=== PATIENT | female | born 1955 | race Caucasian/White ===

== ENCOUNTER 2018-11-11 12:34 | Emergency (ER) | payer OTHER ==
[2018-11-11 12:50] VITALS: BP 131/85
--- NOTE | 2018-11-11 13:58 | ED ---
General Adult HPI - General Chief complaint: Fall Stated complaint: fall Time Seen by Provider: 11/11/18 13:23 Source: patient, RN notes reviewed Mode of arrival: EMS Limitations: no limitations - History of Present Illness Initial comments: Patient is a 63-year-old female presented to the emergency room today with a chief complaint of fall. Patient does admit that she does have a history of a bad knee. States it has given out on her in the past but seems to be given now more recently. She states she was at work and it gave out a few times. She does admit that she's had some increased pain to the medial aspect of left knee and also hit the back of the right elbow. Patient does admit some bruising in this area as well. Patient denies any other complaints or symptoms. Patient denies any recent fever, chills, shortness of breath, chest pain, back pain, abdominal pain, nausea or vomiting, numbness or tingling, headaches or visual changes, or any other complaints. - Related Data Allergies Allergy/AdvReac Type Severity Reaction Status Date / Time No Known Allergies Allergy Verified 11/11/18 12:50 Review of Systems ROS Statement: Those systems with pertinent positive or pertinent negative responses have been documented in the HPI. ROS Other: All systems not noted in ROS Statement are negative. Past Medical History Past Medical History: COPD History of Any Multi-Drug Resistant Organisms: None Reported Past Surgical History: Section, Orthopedic Surgery, Tonsillectomy Past Psychological History: Anxiety, Depression, PTSD Smoking Status: Current every day smoker Past Alcohol Use History: Occasional Past Drug Use History: None Reported General Exam - General Exam Comments Initial Comments: General: The patient is awake and alert, in no distress, and does not appear acutely ill. Eye: There is normal conjunctiva bilaterally. No signs of icterus. Ears, nose, mouth and throat: There are moist mucous membranes and no oral lesions. Neck: The neck is supple, there is no tenderness or JVD. Musculoskeletal: Shows full range of motion with all extremities. She does have some bruising to the back of the right elbow. Some local tenderness to the posterior olecranon. Patient does have tenderness to the medial aspect of the left knee as well. Some minimal mild swelling when compared bilaterally. Strength 5/5. Sensation intact. Pulses equal bilaterally 2+. Neurological: A&O x 3. CN II-XII intact, There are no obvious motor or sensory deficits. Coordination appears grossly intact. Speech is normal. Skin: Skin is warm and dry and no rashes or lesions are noted. Psychiatric: Cooperative, appropriate mood & affect, normal judgment. Limitations: no limitations Course Vital Signs 11/11/18 12:48 Temperature 98.2 F Pulse Rate 70 Respiratory 20 Rate Blood Pressure 131/85 O2 Sat by Pulse 96 Oximetry Medical Decision Making - Medical Decision Making X-rays reviewed of the right elbow, left knee. There are degenerative changes is no evidence for any acute fracture dislocation. Results were discussed with the patient. Patient will be discharged home to follow-up with orthopedics. She is advised to follow-up with the orthopedic doctor next 2 days. Will be given knee immobilizer when up and moving around. She states that the left knee seems to give out. Patient advised to continue to ice elevate the affected areas return for any other concerns. Disposition Clinical Impression: Fall, Elbow contusion, Knee injury Disposition: HOME SELF-CARE Condition: Good Instructions: Knee Immobilizer (ED) Additional Instructions: Please follow-up orthopedics over the next 2 days. Please use knee immobilizer when up and moving around. Please continue to ice elevate the affected area. Please return to emergency room for any other concerns. Is patient prescribed a controlled substance at d/c from ED?: No Referrals: None,Stated [Primary Care Provider] - 1-2 days Trino Maxwell MD [STAFF PHYSICIAN] - 1-2 days Time of Disposition: 14:32
--- NOTE | 2018-11-11 14:11 | XR ---
EXAMINATION TYPE: XR elbow complete 3 views RT, XR knee complete 3 views LT DATE OF EXAM: 11/11/2018 COMPARISON: NONE HISTORY: 63-year-old female pain after fall FINDINGS: Right elbow: No acute fracture, subluxation, or dislocation. No elbow joint effusion. There is suggestion of some mild dorsal sided soft tissue swelling at and just below the level of the elbow. Left knee: Moderate loss of cartilage and joint space within the medial compartment with subchondral sclerosis a nd marginal spurring. There is a small knee joint effusion. Additional mild degenerative spurring at the patellofemoral compartment. No acute fracture or dislocation seen. IMPRESSION: 1. Right elbow: Suggestion of some dorsal sided soft tissue swelling at and just below the level of t he elbow. No acute osseous abnormality seen. 2. Left knee: At least moderate medial compartment osteoarthrosis. The degree of joint space narrowin g may be underestimated on this nonweightbearing view. Underlying small knee joint effusion which is nonspecific. No acute osseous abnormality seen.
[2018-11-11 14:54] VITALS: PULSE 71; RESP 150; TEMP 98
== END 2018-11-11 14:55 | disposition home or self-care (01) ==
LOC: EC 12:34
DX: S50.01XA Contusion of right elbow, initial encounter (principal); S80.02XA Contusion of left knee, initial encounter; M17.32 Unilateral post-traumatic osteoarthritis, left knee; M19.121 Post-traumatic osteoarthritis, right elbow; F17.200 Nicotine dependence, unspecified, uncomplicated; W19.XXXA Unspecified fall, initial encounter; Y92.009 Unspecified place in unspecified non-institutional (private) residence as the place of occurrence of the external cause
CPT/HCPCS: 73080; 73562; 99283; L1830

== ENCOUNTER 2018-11-26 13:00 | Inpatient (IN) | payer OTHER ==
--- NOTE | 2018-11-26 13:51 | ED ---
General Adult HPI - General Chief complaint: Alcohol Stated complaint: Mental health Source: patient, EMS Mode of arrival: EMS Limitations: no limitations - Related Data Home Medications Medication Instructions Recorded Confirmed Escitalopram [Lexapro] 20 mg PO DAILY 11/26/18 11/26/18 hydrOXYzine PAMOATE 50 mg PO TID 11/26/18 11/26/18 traZODone HCL 50 mg PO HS 11/26/18 11/26/18 Allergies Allergy/AdvReac Type Severity Reaction Status Date / Time No Known Allergies Allergy Verified 11/26/18 13:28 Review of Systems ROS Statement: Those systems with pertinent positive or pertinent negative responses have been documented in the HPI. ROS Other: All systems not noted in ROS Statement are negative. Past Medical History Past Medical History: COPD History of Any Multi-Drug Resistant Organisms: None Reported Past Surgical History: Section, Orthopedic Surgery, Tonsillectomy Past Psychological History: Anxiety, Depression, PTSD Smoking Status: Current every day smoker Past Alcohol Use History: Occasional Past Drug Use History: None Reported General Exam Limitations: no limitations Course Vital Signs 11/26/18 11/26/18 11/26/18 13:13 13:51 14:43 Temperature 98.2 F 98.3 F Pulse Rate 81 85 75 Respiratory 19 18 18 Rate Blood Pressure 127/76 124/65 123/74 O2 Sat by Pulse 95 91 L 98 Oximetry Medical Decision Making - Medical Decision Making Dictation was produced using Doc[employer] dictation software. please excuse any grammatical, word or spelling errors. Chief Complaint: 63-year-old female presents with depression and alcohol intoxication. History of Present Illness: Patient is 63-year-old female. She drinks alcohol daily. Patient had history of withdrawal 2 years ago and was treated in [place]. She was inpatient for 4 days. Presents today because she is afraid of going back withdrawals. She has intention of being admitted to rehab facility at [facility]. She states she was drinking all day. She feels depressed. She is worried that her depression maybe to suicidal ideation she does not seek medical attention. Patient has no other complaints at this time. The ROS documented in this emergency department record has been reviewed and confirmed by me. Those systems with pertinent positive or negative responses have been documented in the HPI. All other systems are other negative and/or noncontributory. PHYSICAL EXAM: General Impression: Alert and oriented x3, not in acute distress, smells of EtOH HEENT: Normocephalic atraumatic, extra-ocular movements intact, pupils equal and reactive to light bilaterally, mucous membranes moist. Cardiovascular: Heart regular rate and rhythm, S1&S2 audible, no murmurs, rubs or gallops Chest: Lungs clear to auscultation bilaterally, no rhonchi, no wheeze, no rales Abdomen: Bowel sounds present, abdomen soft, non-tender, non-distended, no organomegaly Musculoskeletal: Pulses present and equal in all extremities, no peripheral edema Motor: Power 5/5 bilaterally, no focal deficits noted Neurological: CN II-XII grossly intact, no focal motor or sensory deficits noted Skin: Intact with no visualized rashes Psych: Normal affect and mood ED course: 63-year-old female presents with depression and alcohol intoxication. Vital signs upon arrival are within acceptable limits. EPS was consult it for depression and possible suicidal ideation. Patient observed in emergency department when she developed alcohol withdrawal symptoms. Her initial Sumi scale is 3 immediately after arrival. After several hours repeat C was 13. Patient started on Ativan protocol for EtOH withdrawal. Patient be admitted for EtOH withdrawal. Disposition Clinical Impression: Alcohol withdrawal syndrome Disposition: ADMITTED IP TO THIS HOSP Condition: Fair Referrals: None,Stated [Primary Care Provider] - 1-2 days Decision Time: 17:36
[2018-11-26] MEDS ORDERED: LORazepam 2 MG/ML INJ IV PRN ×2 (17:13)
[2018-11-26] MEDS ORDERED: THIAMINE 100 MG/ML 2 ML VIAL IM STA (17:13)
[2018-11-26] MEDS ORDERED: NALOXONE 0.4 MG/ML 1 ML VIAL IV PRN (17:37)
[2018-11-26] MEDS: ONDANSETRON 4 MG/2 ML VIAL IVP PRN (18:15)
[2018-11-26 18:37] LABS: Basophils # (A) 0.1 k/uL (0-0.2); Basophils % (A) 1 %; Eosinophils # (A) 0.2 k/uL (0-0.7); Eosinophils % (A) 3 %; HCT 44.4 % (34.0-46.0); HGB 13.7 gm/dL (11.4-16.0); Lymphocytes % (A) 47 %; MCH 29.5 pg (25.0-35.0); MCV 95.4 fL (80.0-100.0); Mean Platelet Volume 6.5; Monocytes # (A) 0.3 k/uL (0-1.0); Monocytes % (A) 5 %; Neutrophils # (A) 2.7 k/uL (1.3-7.7); Neutrophils % (A) 43 %; Platelet Count 206 k/uL (150-450); RBC 4.66 m/uL (3.80-5.40); RDW 13.3 % (11.5-15.5); WBC 6.4 k/uL (3.8-10.6)
[2018-11-26 18:43] LABS: Partial Thromboplastin Time 25.7 sec (22.0-30.0); Prothrombin Time 10.5 sec (9.0-12.0)
--- NOTE | 2018-11-26 18:58 | P.HPIM ---
History of Present Illness H&P Date: 11/26/18 The patient is a 63 yo F with a PMH of COPD and EtOH abuse (hx of withdrawal seizures and DTs) presented to the ED with suicidal ideation. The patient states that she stopped drinking earlier today and wanted to get herself into [facility] for which she has an appt on 11/30/18 but felt like she would be a danger to herself at home and wanted to seek medical attention. At the time of the interview she denied any active suicidal or homicidal ideation. She drinks 1 -2 L of whiskey a day with last drink this am. She otherwise denied chest pain, SOB, nausea, vomiting, dizziness, abdominal pain, coughing, fever, or chills. In the ED, the patient was noted to be in EtOH withdrawal and was thereby admitted to the medicine service or impending withdrawal and psychiatric evaluation. Review of Systems Pertinent positives and negatives as discussed in HPI, a complete review of systems was performed and all other systems are negative. Past Medical History Past Medical History: COPD History of Any Multi-Drug Resistant Organisms: None Reported Past Surgical History: Section, Orthopedic Surgery, Tonsillectomy Past Psychological History: Anxiety, Depression, PTSD Smoking Status: Current every day smoker Past Alcohol Use History: Occasional Past Drug Use History: None Reported Medications and Allergies Home Medications Medication Instructions Recorded Confirmed Type Escitalopram [Lexapro] 20 mg PO DAILY 11/26/18 11/26/18 History hydrOXYzine PAMOATE 50 mg PO TID 11/26/18 11/26/18 History traZODone HCL 50 mg PO HS 11/26/18 11/26/18 History Allergies Allergy/AdvReac Type Severity Reaction Status Date / Time No Known Allergies Allergy Verified 11/26/18 13:28 Physical Exam Vitals: Vital Signs Temp Pulse Resp BP Pulse Ox 11/26/18 14:43 75 18 123/74 98 11/26/18 13:51 98.3 F 85 18 124/65 91 L 11/26/18 13:13 98.2 F 81 19 127/76 95 Intake and Output 11/26/18 11/26/18 11/26/18 06:59 14:59 22:59 Other: Weight 61.235 kg General: [non toxic], [no distress], [appears at stated age], [normal weight] Derm: [no unusual rashes/lesions] [no unusual ecchymoses], [warm], [dry] Head: [atraumatic], [normocephalic], [symmetric] Eyes: [EOMI], [no lid lag], [anicteric sclera], [pupils equal round reactive to light] ENT: [Nose and ears atraumatic], [no thrush], [no pharyngeal erythema] Neck: [No thyromegaly], [no cervical lymphadenopathy], [trachea midline], [ supple] Mouth: [no lip lesion], [mucus membranes moist] Cardiovascular: [S1S2 reg], [no murmur], [positive posterior tibial pulse bilateral], [no edema], [capillary refill less than 2 seconds] Lungs: [CTA bilateral], [no rhonchi, no rales] , [no accessory muscle use] Abdominal: [soft], [ nontender to palpation], [no guarding], [no appreciable organomegaly], [normal bowel sounds] Ext: [no gross muscle atrophy], [muscle strength 5 out of 5 in all 4 extremities grossly], [no contractures] Neuro: [ CN II-XI grossly intact], [light touch intact all 4 extremities], outstretched hand tremors, tongue fasciculations Psych: [Alert], [oriented], depressed affect Results CBC & Chem 7: 11/26/18 18:15 Assessment and Plan Plan: EtOH withdrawal -CIWA protocol -Thiamine, Folate, MV -F/u BMP and replace electrolytes as warranted -IVFs -Seizure, aspiration, fall precautions Suicidal ideation -Observation 1:1 -Suicide precautions -Psych consult COPD -Duonebs prn Tobacco abuse -Nicotine patch DVT//GI prophylaxis -IPCDs -Protonix The patient is admitted with an anticipated greater than 2 midnight stay for evaluation of alcohol withdrawal CODE STATUS:Full-code Discussed with: Patient Anticipated discharge date: 11/30/[address]: [place] A total of 60 minutes was spent on the care of this complex patient more than 50 % of the time was spent in counseling and care coordination.
[2018-11-26] MEDS ORDERED: IPRATROPIUM-ALBUTEROL 3 ML NEB INHALATION PRN (19:03)
[2018-11-26 19:33] LABS: ALT 31 U/L (9-52); AST 127 U/L (14-36); Albumin 3.5 g/dL (3.5-5.0); Alkaline Phosphatase 73 U/L (38-126); Anion Gap 9 mmol/L; Blood Urea Nitrogen 11 mg/dL (7-17); Calcium 8.8 mg/dL (8.4-10.2); Carbon Dioxide 26 mmol/L (22-30); Chloride 105 mmol/L (98-107); Glucose 101 mg/dL (74-99); Magnesium 1.6 mg/dL (1.6-2.3); Potassium 3.4 mmol/L (3.5-5.1); Sodium 140 mmol/L (137-145); Total Bilirubin 0.6 mg/dL (0.2-1.3); Total Protein 6.1 g/dL (6.3-8.2)
[2018-11-26 19:38] LABS: Alcohol 87 mg/dL
[2018-11-26] MEDS ORDERED: POTASSIUM CHLORIDE ER 20 MEQ TAB.ER PO STA (19:53)
[2018-11-26] MEDS: hydrOXYzine PAMOATE 25 MG CAP PO SCH (22:05)
[2018-11-27] MEDS: LORazepam 2 MG/ML INJ IV PRN ×2 (00:01→06:22)
[2018-11-27] MEDS: ONDANSETRON 4 MG/2 ML VIAL IVP PRN ×2 (00:01→09:00)
[2018-11-27] MEDS: hydrOXYzine PAMOATE 25 MG CAP PO SCH ×3 (08:56→20:27)
[2018-11-27] MEDS: THIAMINE 100 MG TAB PO SCH ×2 (08:56→17:04)
[2018-11-27] MEDS: FOLIC ACID 1 MG TAB PO SCH (08:56)
[2018-11-27] MEDS: ESCITALOPRAM 20 MG TAB PO SCH (08:56)
[2018-11-27 09:47] LABS: HCT 43.9 % (34.0-46.0); HGB 14.8 gm/dL (11.4-16.0); MCH 32.7 pg (25.0-35.0); MCHC 33.7 g/dL (31.0-37.0); MCV 96.9 fL (80.0-100.0); Mean Platelet Volume 6.9; Platelet Count 192 k/uL (150-450); RBC 4.53 m/uL (3.80-5.40); RDW 13.3 % (11.5-15.5); WBC 6.8 k/uL (3.8-10.6)
[2018-11-27 10:14] LABS: Albumin 3.5 g/dL (3.5-5.0); Calcium 9.1 mg/dL (8.4-10.2); Magnesium 1.4 mg/dL (1.6-2.3); Potassium 4.5 mmol/L (3.5-5.1); Total Bilirubin 1.5 mg/dL (0.2-1.3); Total Protein 6.1 g/dL (6.3-8.2)
--- NOTE | 2018-11-27 11:14 | P.PN ---
Subjective Progress Note Date: 11/27/18 The patient was seen and examined at the bedside. She notes feeling shaky but denied seizures, fever, chills, chest pain, SOB, nausea, vomiting, or dizziness. Objective - Vital Signs Vital signs: Vital Signs Temp 98.9 F 11/27/18 06:00 Pulse 72 11/27/18 06:00 Resp 20 11/27/18 06:00 BP 160/95 11/27/18 06:00 Pulse Ox 93 L 11/27/18 06:00 Intake & Output 11/26/18 11/27/18 11/27/18 18:59 06:59 18:59 Intake Total 100 Output Total 1 Balance 99 Weight 61.235 kg 68.266 kg Intake: Oral 100 Output: Stool 1 Other: # Voids 1 - Exam General: Non-toxic, in no acute distress, appears stated age HEENT: NC/AT, anicteric sclerae, moist conjunctiva, no lid-lag, PERRLA, tongue fasciculations Cardiovascular: S1/S2 wnl, no murmurs, rubs, or gallops Lungs: Clear to auscultation, normal respiratory effort, no accessory muscle use Abdominal: Soft, nontender, non-distended, no guarding, rebound, or rigidity Skin: Warm, dry Extremities: No edema or contractures Psychiatric: Alert and oriented to person, place and time, appropriate affect Neuro: CN II-XII grossly intact, Strength 5/5 in all 4 extremities, Speech intact, Sensation to light touch grossly intact throughout, outstretched hand tremors - Labs CBC & Chem 7: 11/27/18 09:11 11/27/18 09:11 Labs: Abnormal Lab Results - Last 24 Hours (Table) 11/26/18 11/27/18 Range/Units 19:12 09:11 Potassium 3.4 L (3.5-5.1) mmol/L Carbon Dioxide 31 H (22-30) mmol/L Glucose 101 H 104 H (74-99) mg/dL Magnesium 1.4 L (1.6-2.3) mg/dL Total Bilirubin 1.5 H (0.2-1.3) mg/dL AST 127 H 102 H (14-36) U/L Total Protein 6.1 L 6.1 L (6.3-8.2) g/dL Assessment and Plan Plan: EtOH withdrawal -CIWA protocol -Thiamine, Folate, MV -F/u BMP and replace electrolytes as warranted -IVFs -Seizure, aspiration, fall precautions Suicidal ideation -Observation 1:1 -Suicide precautions -Psych consult COPD -Duonebs prn Tobacco abuse -Nicotine patch DVT//GI prophylaxis -Lovenox -Protonix Discussed with: Patient Anticipated discharge date: 11/29/[address]: [place] A total of 30 minutes was spent on the care of this complex patient more than 50 % of the time was spent in counseling and care coordination.
[2018-11-27] MEDS: MAGNESIUM SULFATE-D5W PMX 1 GM in DEXTROSE/WATER 1 100ML.BAG IVPB SCH ×3 (12:17→14:20)
[2018-11-27] MEDS: NICOTINE 21MG/24HR PATCH TRANSDERM SCH (12:17)
--- NOTE | 2018-11-27 13:56 | P.CN ---
Psychiatric Consult - . Consult date: 11/27/18 Consult:: Suicidal urgent 11/27/18 12:56 Assessment and Plan Assessment: The patient is a 63 yo F with a PMH of COPD and EtOH abuse (hx of withdrawal seizures and DTs) presented to the ED with suicidal ideation. The patient states that she stopped drinking earlier today and wanted to get herself into [facility] for which she has an appt on 11/30/18 but felt like she would be a danger to herself at home and wanted to seek medical attention. At the time of the interview she denied any active suicidal or homicidal ideation. She drinks 1 -2 L of whiskey a day with last drink this am. She otherwise denied chest pain, SOB, nausea, vomiting, dizziness, abdominal pain, coughing, fever, or chills. In the ED, the patient was noted to be in EtOH withdrawal and was thereby admitted to the medicine service or impending withdrawal and psychiatric evaluation. Past Medical History Past Medical History: COPD History of Any Multi-Drug Resistant Organisms: None Reported Past Surgical History: Section, Orthopedic Surgery, Tonsillectomy Past Psychological History: Anxiety, Depression, PTSD Smoking Status: Current every day smoker Past Alcohol Use History: Occasional Past Drug Use History: None Reported Medications and Allergies Home Medications Medication Instructions Recorded Confirmed Type Escitalopram [Lexapro] 20 mg PO DAILY 11/26/18 11/26/18 History hydrOXYzine PAMOATE 50 mg PO TID 11/26/18 11/26/18 History traZODone HCL 50 mg PO HS 11/26/18 11/26/18 History Allergies Allergy/AdvReac Type Severity Reaction Status Date / Time No Known Allergies Allergy Verified 11/26/18 13:28 Mental Status Examination - General Appearance: [ disheveled, appears older than stated age Speech/Language: [ slow, soft, Attitude/Behavior: [cooperative Mood: [ depressed when she drinks,fearful, hopelessness Affect: [ flat Orientation: [time, person, place situation] Thought Content: [wnl, denies delusions, obsessions, phobias, other] Risk Factors: [Denies that the current time suicidal (ideations, plan), and/or Homicidal (ideations, plan), Perception: [wnl, denies hallucinations (auditory, visual, tactile)] Thought Processes: [goal-oriented Concentration/Attention Span: [wnl] [Per observation and interview with the patient] Recent Memory: [wnl] [ 3 out of 3 in 3 minutes] Remote Memory: [wnl] [past events, as related history] Intelligence: [average] [based on history, based on vocabulary, syntax, grammar , and content] Judgement: [ fair] [per patient's behavior/history of present illness] Insight: [fair [understanding severity of illness/history of present illness] Psychiatric impression: Major depressive disorder recurrent exacerbated by alcohol use disorder severe Psychiatric recommendation: Highly recommend this will go to [place] she is agreed to and for her to continue her psychiatric meds Lexapro trazodone and Vistaril as needed. She is not a psychiatric candidate for inpatient treatment however she does need alcohol use disorder severe treatment at a residential program. Thank you for the consult Hrenesto Cabrera D.O. PhD (1) Suicidal behavior Current Visit: Yes Status: Acute Priority: Low Code(s): R46.89 - OTHER SYMPTOMS AND SIGNS INVOLVING APPEARANCE AND BEHAVIOR SNOMED Code(s): 237025230 (2) Alcohol withdrawal syndrome Current Visit: Yes Status: Acute Priority: High Code(s): F10.239 - ALCOHOL DEPENDENCE WITH WITHDRAWAL, UNSPECIFIED SNOMED Code(s): 579618976
[2018-11-28] MEDS: LORazepam 2 MG/ML INJ IV PRN ×4 (01:56→21:45)
[2018-11-28] MEDS: ENOXAPARIN 40 MG/0.4 ML SYRINGE SQ SCH (08:32)
[2018-11-28] MEDS: NICOTINE 21MG/24HR PATCH TRANSDERM SCH (08:32)
[2018-11-28] MEDS: ESCITALOPRAM 20 MG TAB PO SCH (08:32)
[2018-11-28] MEDS: hydrOXYzine PAMOATE 25 MG CAP PO SCH ×3 (08:33→21:34)
[2018-11-28] MEDS: FOLIC ACID 1 MG TAB PO SCH (08:33)
[2018-11-28] MEDS: THIAMINE 100 MG TAB PO SCH ×2 (08:33→16:16)
[2018-11-28 10:46] LABS: HCT 46.5 % (34.0-46.0); MCH 31.4 pg (25.0-35.0); MCHC 32.4 g/dL (31.0-37.0); MCV 96.9 fL (80.0-100.0); Mean Platelet Volume 7.3; Platelet Count 179 k/uL (150-450); RDW 12.9 % (11.5-15.5); WBC 7.1 k/uL (3.8-10.6)
[2018-11-28 11:20] LABS: ALT 36 U/L (9-52); AST 95 U/L (14-36); Albumin 3.4 g/dL (3.5-5.0); Alkaline Phosphatase 91 U/L (38-126); Anion Gap 4 mmol/L; Blood Urea Nitrogen 11 mg/dL (7-17); Carbon Dioxide 30 mmol/L (22-30); Chloride 103 mmol/L (98-107); Glucose 115 mg/dL (74-99); Magnesium 1.9 mg/dL (1.6-2.3); Potassium 4.5 mmol/L (3.5-5.1); Sodium 137 mmol/L (137-145); Total Bilirubin 1.2 mg/dL (0.2-1.3); Total Protein 6.2 g/dL (6.3-8.2)
[2018-11-28 15:05] VITALS: RESP 16
--- NOTE | 2018-11-28 17:08 | P.PN ---
Subjective Progress Note Date: 11/28/18 The patient seen and examined the bedside. The patient notes that she is feeling better today and less shaky from yesterday. She denied any active homicidal or suicidal ideation. She also denied chest pain, shortness of breath , nausea, vomiting, diarrhea, dizziness, or headaches. Objective - Vital Signs Vital signs: Vital Signs Temp 98.8 F 11/28/18 15:00 Pulse 75 11/28/18 15:00 Resp 16 11/28/18 15:00 BP 133/85 11/28/18 15:00 Pulse Ox 94 L 11/28/18 15:00 Intake & Output 11/27/18 11/28/18 11/28/18 18:59 06:59 18:59 Intake Total 300 200 Output Total 1 Balance 300 199 Weight 68.266 kg Intake: Intake, IV Titration 300 Amount Magnesium Sulfate-D5w Pmx 300 1 gm In Dextrose/Water 1 100ml.bag @ 100 mls/hr IVPB Q1H [facility] Rx#: [id number] Oral 200 Output: Stool 1 Other: # Voids 1 1 - Exam General: Non-toxic, in no acute distress, appears stated age HEENT: NC/AT, anicteric sclerae, moist conjunctiva, no lid-lag, PERRLA, tongue fasciculations Cardiovascular: S1/S2 wnl, no murmurs, rubs, or gallops Lungs: Clear to auscultation, normal respiratory effort, no accessory muscle use Abdominal: Soft, nontender, non-distended, no guarding, rebound, or rigidity Skin: Warm, dry Extremities: No edema or contractures Psychiatric: Alert and oriented to person, place and time, appropriate affect Neuro: CN II-XII grossly intact, Strength 5/5 in all 4 extremities, Speech intact, Sensation to light touch grossly intact throughout, outstretched hand tremors - Labs CBC & Chem 7: 11/28/18 10:32 11/28/18 10:32 Labs: Abnormal Lab Results - Last 24 Hours (Table) 11/28/18 11/28/18 Range/Units 10:32 10:32 Hct 46.5 H (34.0-46.0) % Glucose 115 H (74-99) mg/dL AST 95 H (14-36) U/L Total Protein 6.2 L (6.3-8.2) g/dL Albumin 3.4 L (3.5-5.0) g/dL Assessment and Plan Plan: EtOH withdrawal -CIWA protocol -Thiamine, Folate, MV -F/u BMP and replace electrolytes as warranted -IVFs -Seizure, aspiration, fall precautions Suicidal ideation -Observation 1:1 -Suicide precautions -Psych recs appreciated COPD -Duonebs prn Tobacco abuse -Nicotine patch DVT//GI prophylaxis -Lovenox -Protonix Discussed with: Patient Anticipated discharge date: 11/30/[address]: [place] A total of 30 minutes was spent on the care of this complex patient more than 50 % of the time was spent in counseling and care coordination.
[2018-11-29 06:02] VITALS: BP 166/103; PULSE 74; TEMP 99
[2018-11-29] MEDS: hydrOXYzine PAMOATE 25 MG CAP PO SCH (07:54)
[2018-11-29] MEDS: THIAMINE 100 MG TAB PO SCH (07:54)
[2018-11-29] MEDS: ESCITALOPRAM 20 MG TAB PO SCH (07:54)
[2018-11-29] MEDS: ENOXAPARIN 40 MG/0.4 ML SYRINGE SQ SCH (07:54)
[2018-11-29] MEDS: NICOTINE 21MG/24HR PATCH TRANSDERM SCH (07:54)
[2018-11-29] MEDS: FOLIC ACID 1 MG TAB PO SCH (07:54)
[2018-11-29 09:48] LABS: Albumin 3.6 g/dL (3.5-5.0); Calcium 9.3 mg/dL (8.4-10.2); Potassium 4.5 mmol/L (3.5-5.1); Total Bilirubin 1.1 mg/dL (0.2-1.3); Total Protein 6.4 g/dL (6.3-8.2)
--- NOTE | 2018-11-29 10:03 | P.DS ---
Providers Date of admission: 11/26/18 17:37 Expected date of discharge: 11/29/18 Attending physician: Laura Davis MD Consults: 11/27/18 07:45 Consult Physician Urgent Consulting Provider: Hernesto Cabrera Consult Reason/Comments: Suicidal ideation Do you want consulting provider notified?: Yes Primary care physician: Stated None Hospital Course: The patient is a 63-year-old female with a past medical history of COPD and alcohol abuse who presented to the ED with alcohol intoxication and suicidal ideation. The patient had an appointment at [facility] and felt that she would not be safe at home as she might hurt herself. The patient was admitted for psychiatric evaluation impending alcohol withdrawal. She was placed on the protocol with Ativan and was monitored for withdrawal symptoms. Psychiatry evaluated the patient and she was deemed not appropriate for inpatient admission and recommended alcohol rehab at [facility]. The patient' s withdrawal symptoms gradually improved and she is presently stable and ready for discharge to home. Physical Examination General: Awake, alert, in no acute distress HEENT: NC/AT, anicteric sclerae, moist conjunctiva, no lid-lag, PERRLA, oropharynx clear, no erythema, exudates, no tongue fasciculations Cardiovascular: S1/S2 wnl, no murmurs, rubs, or gallops Lungs: Clear to auscultation, normal respiratory effort, no accessory muscle use Abdominal: Soft, nontender, non-distended, no guarding, rebound, or rigidity, normoactive bowel sounds Skin: Warm, dry Extremities: No edema or contractures Psychiatric: Alert and oriented to person, place and time, appropriate affect, Intact judgment Neuro: CN II-XI grossly intact, sensation to light touch grossly present throughout, strength 5/5 throughout, no outstretched hand tremor Discharge diagnosis: Alcohol intoxication with withdrawal, suicidal ideation, COPD, tobacco abuse A total of 60 minutes of time were spent preparing this complex discharge summary. Patient Condition at Discharge: Stable Plan - Discharge Summary New Discharge Prescriptions: No Action traZODone HCL 50 mg PO HS hydrOXYzine PAMOATE 50 mg PO TID Escitalopram [Lexapro] 20 mg PO DAILY Discharge Medication List Escitalopram [Lexapro] 20 mg PO DAILY 11/26/18 [History] hydrOXYzine PAMOATE 50 mg PO TID 11/26/18 [History] traZODone HCL 50 mg PO HS 11/26/18 [History] Follow up Appointment(s)/Referral(s): None,Stated [Primary Care Provider] - 1-2 days
== END 2018-11-29 11:28 | disposition home or self-care (01) | DRG 897 ==
LOC: EC 13:00 → 4MS4W 17:37
PROVIDERS: ADMIT Internal Medicine; ATTEND Internal Medicine
DX: F10.239 Alcohol dependence with withdrawal, unspecified (principal); R45.851 Suicidal ideations; F10.229 Alcohol dependence with intoxication, unspecified; F17.200 Nicotine dependence, unspecified, uncomplicated; F32.9 Major depressive disorder, single episode, unspecified; F43.10 Post-traumatic stress disorder, unspecified; J44.9 Chronic obstructive pulmonary disease, unspecified; F41.9 Anxiety disorder, unspecified; Z79.899 Other long term (current) drug therapy
CPT/HCPCS: 80053; 80320; 82075; 83735; 85025; 85027; 85610; 85730; 96372; 96374; 99285

== ENCOUNTER 2020-01-27 09:27 | Emergency (ER) | payer OTHER ==
--- NOTE | 2020-01-27 10:11 | ED ---
General Adult HPI - General Source: patient, EMS, RN notes reviewed Mode of arrival: EMS Limitations: no limitations <Bruce Dorado - Last Filed: 01/27/20 10:10> <Sal Marie - Last Filed: 01/27/20 17:31> - General Chief complaint: Psychiatric Symptoms Stated complaint: Suicidal Time Seen by Provider: 01/27/20 09:32 - History of Present Illness Initial comments: Patient is a pleasant 64-year-old female presenting to the emergency Department with depression and suicidal thoughts. Thoughts are progressed with the past couple of weeks. Patient does have thoughts of jumping in front of traffic. No homicidal thoughts. Patient does have history of depression and alcohol problems. Patient has been drinking alcohol again recently. No street drugs. No hallucinations. No new physical complaints. Patient states she does have a history of PTSD (Bruce Dorado) - Related Data Home Medications Medication Instructions Recorded Confirmed Escitalopram [Lexapro] 20 mg PO DAILY 11/26/18 01/27/20 hydrOXYzine PAMOATE 50 mg PO TID 11/26/18 01/27/20 traZODone HCL 50 mg PO HS PRN 11/26/18 01/27/20 Aspirin EC [Ecotrin Low Dose] 81 mg PO DAILY 01/27/20 01/27/20 Atorvastatin [Lipitor] 20 mg PO DAILY 01/27/20 01/27/20 Ergocalciferol [Vitamin D2] 50,000 unit PO Q14D 01/27/20 01/27/20 Ipratropium-Albuterol Nebulize 3 ml INHALATION RT-Q6H PRN 01/27/20 01/27/20 [Duoneb 0.5 mg-3 mg/3 ml Soln] Previous Rx's Medication Instructions Recorded Folic Acid 1 mg PO DAILY@1200 #30 tab 11/29/18 Thiamine [Vitamin B-1] 100 mg PO BID@1200,1700 #30 tab 11/29/18 Allergies Allergy/AdvReac Type Severity Reaction Status Date / Time No Known Allergies Allergy Verified 01/27/20 11:19 Review of Systems ROS Other: All systems not noted in ROS Statement are negative. Constitutional: Denies: fever Eyes: Denies: eye pain ENT: Denies: ear pain Respiratory: Denies: cough Cardiovascular: Denies: chest pain Endocrine: Denies: fatigue Gastrointestinal: Denies: abdominal pain Genitourinary: Denies: dysuria Musculoskeletal: Denies: back pain Skin: Denies: rash Neurological: Denies: headache Psychiatric: Reports: depression, suicidal thoughts <Bruce Dorado - Last Filed: 01/27/20 10:10> ROS Other: All systems not noted in ROS Statement are negative. <Sal Marie - Last Filed: 01/27/20 17:31> ROS Statement: Those systems with pertinent positive or pertinent negative responses have been documented in the HPI. Past Medical History Past Medical History: COPD History of Any Multi-Drug Resistant Organisms: None Reported Past Surgical History: Section, Orthopedic Surgery, Tonsillectomy Past Psychological History: Anxiety, Depression, PTSD Smoking Status: Current every day smoker Past Alcohol Use History: Occasional Past Drug Use History: None Reported <Bruce Dorado - Last Filed: 01/27/20 10:10> General Exam Limitations: no limitations General appearance: alert, in no apparent distress Head exam: Present: normocephalic Eye exam: Present: normal appearance Neck exam: Present: normal inspection Respiratory exam: Present: normal lung sounds bilaterally Cardiovascular Exam: Present: regular rate, normal rhythm GI/Abdominal exam: Present: soft. Absent: distended, tenderness Extremities exam: Present: normal inspection Neurological exam: Present: alert Psychiatric exam: Present: depressed Skin exam: Present: normal color <Bruce Dorado - Last Filed: 01/27/20 10:10> Course <Sal Marie - Last Filed: 01/27/20 17:31> Vital Signs 01/27/20 01/27/20 01/27/20 09:57 10:06 11:06 Temperature 97.8 F Pulse Rate 81 Respiratory 20 18 16 Rate Blood Pressure 123/73 O2 Sat by Pulse 97 Oximetry 01/27/20 16:00 Temperature 97.9 F Pulse Rate 95 Respiratory 18 Rate Blood Pressure 185/86 O2 Sat by Pulse 94 L Oximetry - Reevaluation(s) Reevaluation #1: 01/27/20 17:30 I did evaluate this patient after sign out, she is resting comfortably, no longer intoxicated, denying any suicidal or homicidal ideation. Patient eager for discharge. (Sal Marie) Medical Decision Making <Sal Marie - Last Filed: 01/27/20 17:31> - Medical Decision Making 64-year-old female presenting with depression and suicidal thoughts. Patient was initially intoxicated, she was observed in the emergency department awaiting sobriety. She was evaluated by EPS and no longer suicidal. She has signed a safety plan and is eager for discharge. (Sal Marie) - Lab Data Lab Results 01/27/20 Range/Units 10:00 Urine Opiates Screen Not Detected (NotDetected) Ur Oxycodone Screen Not Detected (NotDetected) Urine Methadone Screen Not Detected (NotDetected) Ur Propoxyphene Screen Not Detected (NotDetected) Ur Barbiturates Screen Not Detected (NotDetected) U Tricyclic Antidepress Not Detected (NotDetected) Ur Phencyclidine Scrn Not Detected (NotDetected) Ur Amphetamines Screen Not Detected (NotDetected) U Methamphetamines Scrn Not Detected (NotDetected) U Benzodiazepines Scrn Not Detected (NotDetected) Urine Cocaine Screen Not Detected (NotDetected) U Marijuana (THC) Screen Not Detected (NotDetected) Disposition <Bruce Dorado - Last Filed: 01/27/20 10:10> Is patient prescribed a controlled substance at d/c from ED?: No Time of Disposition: 17:29 <Sal Marie - Last Filed: 01/27/20 17:31> Clinical Impression: Depression Disposition: HOME SELF-CARE Condition: Fair Instructions (If sedation given, give patient instructions): Alcohol Intoxication (ED), Depression (ED) Additional Instructions: Please follow up with community mental health, return with worsening or changing symptoms. Referrals: Kandi Dailey MD [Primary Care Provider] - 1-2 days
[2020-01-27 10:33] LABS: Amphetamine Screen,Urine Not Detected (NotDetected); Barbiturate Screen,Urine Not Detected (NotDetected); Benzodiazepines Screen,Urine Not Detected (NotDetected); Cocaine Screen,Urine Not Detected (NotDetected); Methadone Screen, Urine Not Detected (NotDetected); Opiate Screen,Urine Not Detected (NotDetected); Oxycodone Screen, Urine Not Detected (NotDetected); Phencyclidine Screen,Urine Not Detected (NotDetected); Tricyclic Antidepressant,Urine Not Detected (NotDetected); Urn Cannabinoid Scrn Not Detected (NotDetected)
[2020-01-27 16:01] VITALS: TEMP 97.9
[2020-01-27 17:53] VITALS: BP 128/80; PULSE 80; RESP 20
== END 2020-01-27 17:45 | disposition home or self-care (01) ==
LOC: EC 09:27
DX: F32.9 Major depressive disorder, single episode, unspecified (principal); F43.10 Post-traumatic stress disorder, unspecified; R45.851 Suicidal ideations; F10.129 Alcohol abuse with intoxication, unspecified; F17.200 Nicotine dependence, unspecified, uncomplicated; J44.9 Chronic obstructive pulmonary disease, unspecified; F41.9 Anxiety disorder, unspecified; Z79.899 Other long term (current) drug therapy; Z79.82 Long term (current) use of aspirin
CPT/HCPCS: 80306; 82075; 99285

== ENCOUNTER 2020-03-03 20:54 | Observation (INO) | payer OTHER ==
[2020-03-03] MEDS ORDERED: SODIUM CHLORIDE 0.9% 1,000 ML with MVI, ADULT NO.4 WITH VIT K 10 ML, THIAMINE 100 MG, F... IV ONE ×4 (21:17)
[2020-03-03] MEDS ORDERED: LORazepam 2 MG/ML INJ IV STA (21:18)
--- NOTE | 2020-03-03 21:20 | ED ---
General Adult HPI - General Chief complaint: Psychiatric Symptoms Stated complaint: Mental Health Time Seen by Provider: 03/03/20 20:55 Source: police, RN notes reviewed, old records reviewed Mode of arrival: wheelchair - History of Present Illness Initial comments: This is a 64-year-old female who was brought in by police petitioned her because she said she wanted to hang herself. I am unsure as to why the police came to the house because they were not around to talk to when I interviewed the patient. Patient herself says she called them but she doesn't really know why. Patient states she was drinking and she does want to hurt herself. Patient denies any drug use. Patient denies any injury to herself. Patient denies taking any overdose. Patient denies any physical complaints today. - Related Data Home Medications Medication Instructions Recorded Confirmed Escitalopram [Lexapro] 20 mg PO DAILY 11/26/18 01/27/20 hydrOXYzine PAMOATE 50 mg PO TID 11/26/18 01/27/20 traZODone HCL 50 mg PO HS PRN 11/26/18 01/27/20 Aspirin EC [Ecotrin Low Dose] 81 mg PO DAILY 01/27/20 01/27/20 Atorvastatin [Lipitor] 20 mg PO DAILY 01/27/20 01/27/20 Ergocalciferol [Vitamin D2] 50,000 unit PO Q14D 01/27/20 01/27/20 Ipratropium-Albuterol Nebulize 3 ml INHALATION RT-Q6H PRN 01/27/20 01/27/20 [Duoneb 0.5 mg-3 mg/3 ml Soln] Previous Rx's Medication Instructions Recorded Folic Acid 1 mg PO DAILY@1200 #30 tab 11/29/18 Thiamine [Vitamin B-1] 100 mg PO BID@1200,1700 #30 tab 11/29/18 Allergies Allergy/AdvReac Type Severity Reaction Status Date / Time No Known Allergies Allergy Verified 03/03/20 21:01 Review of Systems ROS Statement: Those systems with pertinent positive or pertinent negative responses have been documented in the HPI. ROS Other: All systems not noted in ROS Statement are negative. Past Medical History Past Medical History: COPD History of Any Multi-Drug Resistant Organisms: None Reported Past Surgical History: Section, Orthopedic Surgery, Tonsillectomy Past Psychological History: Anxiety, Depression, PTSD Smoking Status: Current every day smoker Past Alcohol Use History: Occasional Past Drug Use History: None Reported General Exam - General Exam Comments Initial Comments: GENERAL: Patient is well-developed and well-nourished. Patient is nontoxic and well- hydrated and is in no acute distress. Patient is very loud and obnoxious but does not appear to be trying to hurt to staff ENT: Neck is soft and supple. No significant lymphadenopathy is noted. Neck has full range of motion without eliciting any pain. EYES: The sclera were anicteric and conjunctiva were pink and moist. Extraocular movements were intact and pupils were equal round and reactive to light. Eyelids were unremarkable. PULMONARY: Unlabored respirations. Good breath sounds bilaterally. No audible rales rhon chi or wheezing was noted. CARDIOVASCULAR: There is a regular rate and rhythm without any murmurs gallops or rubs. ABDOMEN: Soft and nontender with normal bowel sounds. SKIN: Skin is clear with no lesions or rashes and otherwise unremarkable. NEUROLOGIC: Patient is alert and oriented x3. Cranial nerves II through XII are grossly intact. Motor and sensory are also intact. Normal speech, volume and content. Symmetrical smile. MUSCULOSKELETAL: Normal extremities with adequate strength and full range of motion. No lower extremity swelling or edema. No calf tenderness. LYMPHATICS: No significant lymphadenopathy is noted PSYCHIATRIC: Patient states she does want harm her self but has no specific plan. Course Vital Signs 03/03/20 20:54 Temperature 98.2 F Pulse Rate 100 Respiratory 20 Rate Blood Pressure 182/118 O2 Sat by Pulse 96 Oximetry Medical Decision Making - Medical Decision Making Patient received 2 of Ativan because she was uncooperative. Patient's alcohol came back at 256. I spoke with some physicians they agreed to admit the patient I admitted the patient wrote admitting orders. - Lab Data Result diagrams: 03/03/20 21:20 03/03/20 21:20 Lab Results 03/03/20 03/03/20 Range/Units 21:20 21:20 WBC 13.4 H (3.8-10.6) k/uL RBC 5.31 (3.80-5.40) m/uL Hgb 15.4 (11.4-16.0) gm/dL Hct 48.1 H (34.0-46.0) % MCV 90.6 (80.0-100.0) fL MCH 29.0 (25.0-35.0) pg MCHC 32.0 (31.0-37.0) g/dL RDW 14.9 (11.5-15.5) % Plt Count 287 (150-450) k/uL Neutrophils % 45 % Lymphocytes % 46 % Monocytes % 3 % Eosinophils % 2 % Basophils % 1 % Neutrophils # 6.1 (1.3-7.7) k/uL Lymphocytes # 6.2 H (1.0-4.8) k/uL Monocytes # 0.4 (0-1.0) k/uL Eosinophils # 0.3 (0-0.7) k/uL Basophils # 0.1 (0-0.2) k/uL Sodium 144 (137-145) mmol/L Potassium 4.6 (3.5-5.1) mmol/L Chloride 110 H (98-107) mmol/L Carbon Dioxide 23 (22-30) mmol/L Anion Gap 11 mmol/L BUN 12 (7-17) mg/dL Creatinine 0.61 (0.52-1.04) mg/dL Est GFR (CKD-EPI)AfAm >90 (>60 ml/min/1.73 sqM) Est GFR (CKD-EPI)NonAf >90 (>60 ml/min/1.73 sqM) Glucose 95 (74-99) mg/dL Calcium 8.7 (8.4-10.2) mg/dL Magnesium 1.9 (1.6-2.3) mg/dL Total Bilirubin 0.5 (0.2-1.3) mg/dL AST 42 H (14-36) U/L ALT 9 (4-34) U/L Alkaline Phosphatase 92 (38-126) U/L Total Protein 7.3 (6.3-8.2) g/dL Albumin 4.3 (3.5-5.0) g/dL Serum Alcohol 256 H* mg/dL Disposition Clinical Impression: Suicidal ideation, Alcohol intoxication Disposition: ADMITTED IP TO THIS [facility] Referrals: None,Stated [Primary Care Provider] - 1-2 days Time of Disposition: 22:32
[2020-03-03 21:52] LABS: Basophils # (A) 0.1 k/uL (0-0.2); Basophils % (A) 1 %; Eosinophils # (A) 0.3 k/uL (0-0.7); Eosinophils % (A) 2 %; HCT 48.1 % (34.0-46.0); HGB 15.4 gm/dL (11.4-16.0); Lymphocytes # (A) 6.2 k/uL (1.0-4.8); Lymphocytes % (A) 46 %; MCV 90.6 fL (80.0-100.0); Mean Platelet Volume 7.2; Monocytes # (A) 0.4 k/uL (0-1.0); Monocytes % (A) 3 %; Neutrophils # (A) 6.1 k/uL (1.3-7.7); Neutrophils % (A) 45 %; Platelet Count 287 k/uL (150-450); RBC 5.31 m/uL (3.80-5.40); RDW 14.9 % (11.5-15.5); WBC 13.4 k/uL (3.8-10.6)
[2020-03-03 22:04] LABS: ALT 9 U/L (4-34); AST 42 U/L (14-36); African American GFR (CKD) >90 (>60 ml/min/1.73 sqM); Albumin 4.3 g/dL (3.5-5.0); Alkaline Phosphatase 92 U/L (38-126); Anion Gap 11 mmol/L; Blood Urea Nitrogen 12 mg/dL (7-17); Calcium 8.7 mg/dL (8.4-10.2); Carbon Dioxide 23 mmol/L (22-30); Chloride 110 mmol/L (98-107); Glucose 95 mg/dL (74-99); Magnesium 1.9 mg/dL (1.6-2.3); Non-African American GFR(CKD) >90 (>60 ml/min/1.73 sqM); Potassium 4.6 mmol/L (3.5-5.1); Sodium 144 mmol/L (137-145); Total Bilirubin 0.5 mg/dL (0.2-1.3); Total Protein 7.3 g/dL (6.3-8.2)
[2020-03-03 22:16] LABS: Alcohol 256 mg/dL
[2020-03-03] MEDS ORDERED: THIAMINE 100 MG/ML 2 ML VIAL IM STA (22:33)
[2020-03-03] MEDS ORDERED: LORazepam 2 MG/ML INJ IV PRN ×3 (22:33)
[2020-03-03] MEDS ORDERED: SODIUM CHLORIDE 0.9% 1,000 ML IV ONE (22:35)
[2020-03-03] MEDS ORDERED: SODIUM CHLORIDE 0.9% 1,000 ML IV SCH (22:45)
[2020-03-03] MEDS: THIAMINE 100 MG TAB PO SCH (22:52)
[2020-03-04 00:05] VITALS: TEMP 98.1
--- NOTE | 2020-03-04 05:01 | P.HPIM ---
History of Present Illness H&P Date: 03/03/20 The patient is a 62-year-old female with a PMH of COPD, chronic EtOH abuse with history of DTs and alcohol withdrawal seizure, and COPD who was brought into the ED after being petitioned by the police due to alcohol intoxication and suicidal ideation. The patient reports that she continues to drink a fifth of whiskey daily, and that she recently has been having difficulty finding a place to live and was feeling as though she had no way out and thereby has been having depressive thoughts. She denied any active plans of hurting herself, though notes that she feels really down due to her ongoing alcohol abuse. She noted that her last drink was earlier today. She otherwise denied any additional complaints. She denied chest pain, fever, sore throat, chills, abdominal pain, nausea, vomiting, or dizziness. She underwent an extensive evaluation in the emergency room with laboratory elevation showing an alcohol level of 256, WBC count of 13.4, hemoglobin 15.4, platelets 287, sodium 144, potassium 4.6, chloride 110, BUN 12, and creatinine 0.61. The patient was admitted to the medicine service for alcohol intoxication and suicidal ideation, pending psychiatric evaluation. Review of Systems Pertinent positives and negatives as discussed in HPI, a complete review of systems was performed and all other systems are negative. Past Medical History Past Medical History: COPD History of Any Multi-Drug Resistant Organisms: None Reported Past Surgical History: Section, Orthopedic Surgery, Tonsillectomy Past Psychological History: Anxiety, Depression, PTSD Smoking Status: Current every day smoker Past Alcohol Use History: Occasional Past Drug Use History: None Reported Medications and Allergies Home Medications Medication Instructions Recorded Confirmed Type Escitalopram [Lexapro] 20 mg PO DAILY 11/26/18 01/27/20 History hydrOXYzine PAMOATE 50 mg PO TID 11/26/18 01/27/20 History traZODone HCL 50 mg PO HS PRN 11/26/18 01/27/20 History Folic Acid 1 mg PO DAILY@1200 #30 tab 11/29/18 01/27/20 Rx Thiamine [Vitamin B-1] 100 mg PO BID@1200,1700 #30 tab 11/29/18 01/27/20 Rx Aspirin EC [Ecotrin Low Dose] 81 mg PO DAILY 01/27/20 01/27/20 History Atorvastatin [Lipitor] 20 mg PO DAILY 01/27/20 01/27/20 History Ergocalciferol [Vitamin D2] 50,000 unit PO Q14D 01/27/20 01/27/20 History Ipratropium-Albuterol Nebulize 3 ml INHALATION RT-Q6H PRN 01/27/20 01/27/20 History [Duoneb 0.5 mg-3 mg/3 ml Soln] Allergies Allergy/AdvReac Type Severity Reaction Status Date / Time No Known Allergies Allergy Verified 03/03/20 21:01 Physical Exam Vitals: Vital Signs Temp Pulse Resp BP Pulse Ox 03/03/20 22:56 88 18 106/56 96 03/03/20 20:54 98.2 F 100 20 182/118 96 Intake and Output 03/03/20 03/03/20 03/04/20 14:59 22:59 06:59 Other: Weight 68.039 kg General: Disheveled female, non toxic, no distress, appears at stated age, normal weight Derm: no unusual rashes/lesions no unusual ecchymoses, warm, dry Head: atraumatic, normocephalic, symmetric Eyes: EOMI, no lid lag, anicteric sclera, pupils equal round reactive to light ENT: Nose and ears atraumatic, no thrush, no pharyngeal erythema Neck: No thyromegaly, no cervical lymphadenopathy, trachea midline, supple Mouth: no lip lesion, mucus membranes moist Cardiovascular: S1S2 reg, no murmur, positive posterior tibial pulse bilateral, no edema, capillary refill less than 2 seconds Lungs: CTA bilateral, no rhonchi, no rales , no accessory muscle use Abdominal: soft, nontender to palpation, no guarding, no appreciable organomegaly, normal bowel sounds Ext: no gross muscle atrophy, muscle strength 5 out of 5 in all 4 extremities grossly, no contractures, Neuro: CN II-XI grossly intact, light touch intact all 4 extremities, finger to nose within normal limits, Psych: Alert, oriented to person, place, and time Results CBC & Chem 7: 03/03/20 21:20 03/03/20 21:20 Labs: Abnormal Lab Results - Last 24 Hours (Table) 03/03/20 03/03/20 Range/Units 21:20 21:20 WBC 13.4 H (3.8-10.6) k/uL Hct 48.1 H (34.0-46.0) % Lymphocytes # 6.2 H (1.0-4.8) k/uL Chloride 110 H (98-107) mmol/L AST 42 H (14-36) U/L Serum Alcohol 256 H* mg/dL Assessment and Plan Plan: EtOH intoxication, impending withdrawal -[facility] protocol -Thiamine, folate, multivitamin -Fall, seizure, aspiration precautions -Monitor electrolytes and replace accordingly Leukocytosis -No signs of active infection at this time -Monitor CBC for now Depression with suicidal ideation -Psychiatry consulted -1:1 observation for now COPD, not in acute exacerbation -C/w home inhalers DVT prophylaxis -Heparin subq The patient is admitted with an anticipated less than 2 midnight stay for evaluation of EtOH intoxication CODE STATUS: Full Code Discussed with: Patient Anticipated discharge date: 1-[address]: Detention A total of 35 minutes was spent on the care of this complex patient more than 50% of the time was spent in counseling and care coordination.
[2020-03-04 05:42] VITALS: BP 139/78; PULSE 90; RESP 16
[2020-03-04 07:02] LABS: HCT 42.7 % (34.0-46.0); HGB 13.9 gm/dL (11.4-16.0); MCH 29.2 pg (25.0-35.0); MCHC 32.5 g/dL (31.0-37.0); MCV 89.7 fL (80.0-100.0); Mean Platelet Volume 7.2; Platelet Count 272 k/uL (150-450); RBC 4.76 m/uL (3.80-5.40); RDW 14.8 % (11.5-15.5); WBC 12.6 k/uL (3.8-10.6)
[2020-03-04 07:08] LABS: African American GFR (CKD) >90 (>60 ml/min/1.73 sqM); Anion Gap 7 mmol/L; Blood Urea Nitrogen 13 mg/dL (7-17); Carbon Dioxide 25 mmol/L (22-30); Chloride 111 mmol/L (98-107); Glucose 86 mg/dL (74-99); Magnesium 1.8 mg/dL (1.6-2.3); Non-African American GFR(CKD) >90 (>60 ml/min/1.73 sqM); Potassium 3.9 mmol/L (3.5-5.1); Sodium 143 mmol/L (137-145)
[2020-03-04] MEDS ORDERED: HEPARIN SODIUM,PORCINE 5,000 UNIT/ML 1 ML VIAL SQ SCH (08:00)
[2020-03-04] MEDS: THIAMINE 100 MG TAB PO SCH (08:32)
[2020-03-04] MEDS ORDERED: FOLIC ACID 1 MG TAB PO SCH (09:00)
[2020-03-04] MEDS ORDERED: MULTIVITAMINS, THERA 1 EACH TAB PO SCH (09:00)
--- NOTE | 2020-03-04 12:48 | P.CN ---
Psychiatric Consult - . Consult date: 03/04/20 Consult:: IDENTIFYING DATA: The patient is a 64-year-old female brought to the ED after being petitioned by the police due to alcohol intoxication and suicidal ideation. HISTORY OF PRESENT ILLNESS: I reviewed the medical record and interviewed the patient. She was restless, perseverative but cooperated with the interview. She acknowledged that she was intoxicated when she arrived ED and also acknowledges that she made suicidal statements. She stated that she was upset over her living situation. She is currently living in a motel and has become frustrated with her efforts to find stable housing. She is concerned because she does not have adequate income to remain in the motel. She talked about the current coated 19 epidemic affecting availability of housing. She denied that she had suicidal intent or plan. She denied a history of suicide attempts or gestures. She feels depressed over her living situation and her chronic use of alcohol but denied such depressive symptoms as anhedonia, anergy, impaired concentration, poor appetite and sleep impairment. She was at [facility] for alcohol rehabilitation for 28 days and discharged 2 days ago. She relapsed to alcohol as soon as she left the program. Her drink of choice is whiskey. She was vague about the amount that she consumes but admits that she drinks throughout the day. She denied use of other drugs to get high, help her sleep or change her mood. Her serum alcohol on presentation to ED was 256. PAST PSYCHIATRIC HISTORY: She denied past psychiatric hospitalizations. She met with a psychiatrist or therapist "over 10 years ago" following the of her son. She was treated for PTSD.. PAST MEDICAL HISTORY: COPD ALLERGIES: No known ALLERGIES. SUBSTANCE USE HISTORY: Her alcohol use has been a problem throughout her adult life. She believes that she's been on approximately 15 rehabilitation programs in [place] and in [place]. She has no significant time of abstinence despite the multiple treatment episodes. FAMILY PSYCHIATRIC/SUBSTANCE USE HISTORY: She believes that her daughter has an alcohol use problem. SOCIAL HISTORY: She is born in [place] and her family immigrated to [place] when she was 17 years old. She left school in the 10th grade when she was first . She obtained a GED. She has 4 children from 2 of her marriages. She's been and 7 times. She last worked about 10 years ago. She receives social security disability. She has no stable housing and is currently living in a motel. She last had a stable home about 5 years ago. MENTAL STATUS EXAM: She presented as disheveled, restless and tremulous 18-year-old female. She made eye contact and attended to interview. She had no distinguishing features or prominent physical abnormalities. She had a anxious facial expression. She was alert and oriented to person, place and time. She was restless but not agitated and demonstrated no abnormal movements. Her speech was spontaneous with normal rate, rhythm and volume. She had no articulation difficulties. She was anxious but her anxiety was not extreme, intense uncontrolled. She denied suicidal ideation or wishes. She denied homicidal ideation. She denied feeling hopeless, helpless or worthless. She ruminated about her living situation and needing to leave the hospital to "get a cigarette." She did not express ideas reference, paranoid ideation, magical ideation or delusions. Her thinking was concrete but her associations were coherent and logical. She did not express clang associations, neologisms or bl ocking. She denied hallucinations and did not appear to be responding to internal stimuli. Global impression of intellect is average to below. She has awareness of her alcohol use problems.. IMPRESSIONS: She is a 64-year-old female who has a history of an alcohol use disorder. She has had multiple residential treatment episodes and no sustained period of sobriety. She was recently discharged from a residential treatment program and relapsed immediately after discharge. She has social problems that are compounded by the current coated 19 and then back. She is distressed by her living situation. She denied suicidal intent or plan. She has no history of suicide attempts or gestures. There is no indication for inpatient psychiatric treatment this time. She would benefit from outpatient treatment services. DIAGNOSIS: Alcohol withdrawal, alcohol use disorder severe dependence, lack of stable housing PLAN: Discontinue one-to-one. Consult social work to coordinate referral to community mental health for outpatient substance abuse services.. Thank you for this consult. 03/04/20 12:09
--- NOTE | 2020-03-04 13:52 | P.PN ---
Subjective The patient is a 62-year-old female with a PMH of COPD, chronic EtOH abuse with history of DTs and alcohol withdrawal seizure, and COPD who was brought into the ED after being petitioned by the police due to alcohol intoxication and suicidal ideation. The patient reports that she continues to drink a fifth of whiskey daily, and that she recently has been having difficulty finding a place to live and was feeling as though she had no way out and thereby has been having depressive thoughts. She denied any active plans of hurting herself, though notes that she feels really down due to her ongoing alcohol abuse. She noted that her last drink was earlier today. She otherwise denied any additional complaints. She denied chest pain, fever, sore throat, chills, abdominal pain, nausea, vomiting, or dizziness. She underwent an extensive evaluation in the emergency room with laboratory elevation showing an alcohol level of 256, WBC count of 13.4, hemoglobin 15.4, platelets 287, sodium 144, potassium 4.6, chloride 110, BUN 12, and creatinine 0.61. The patient was admitted to the medicine service for alcohol intoxication and suicidal ideation, pending psychiatric evaluation. 03/04: Patient is awake and alert. Objective - Vital Signs Vital signs: Vital Signs Temp 98.1 F 03/04/20 05:40 Pulse 90 03/04/20 05:40 Resp 16 03/04/20 05:40 BP 139/78 03/04/20 05:40 Pulse Ox 95 03/04/20 05:40 Intake & Output 03/03/20 03/04/20 03/04/20 18:59 06:59 18:59 Intake Total 1000 Balance 1000 Weight 68.039 kg Intake: Intake, IV Titration 1000 Amount Sodium Chloride 0.9% 1, 1000 000 ml @ 200 mls/hr IV . Q5H4M ONE with Mvi, Adult No.4 with Vit K 10 ml with Thiamine 100 mg with Folic Acid 1 mg Rx#: [id number] Other: Voiding Method Toilet Toilet - Exam General: The patient is awake and alert, in no distress Eye: there is normal conjunctiva bilaterally. Neck: The neck is supple, there is no JVD. Cardiovascular: Normal S1-S2, no S3-S4, no murmurs. Respiratory: Lungs clear to auscultation bilaterally Gastrointestinal: Abdomen is soft, nontender Musculoskeletal: There is no pedal edema. Neurological:. Speech is normal. Skin: Skin is warm and dry - Labs CBC & Chem 7: 03/04/20 05:51 03/04/20 05:51 Labs: Abnormal Lab Results - Last 24 Hours (Table) 03/03/20 03/03/20 03/04/20 Range/Units 21:20 21:20 05:51 WBC 13.4 H 12.6 H (3.8-10.6) k/uL Hct 48.1 H (34.0-46.0) % Lymphocytes # 6.2 H (1.0-4.8) k/uL Chloride 110 H (98-107) mmol/L Calcium (8.4-10.2) mg/dL AST 42 H (14-36) U/L Serum Alcohol 256 H* mg/dL 03/04/20 Range/Units 05:51 WBC (3.8-10.6) k/uL Hct (34.0-46.0) % Lymphocytes # (1.0-4.8) k/uL Chloride 111 H (98-107) mmol/L Calcium 8.0 L (8.4-10.2) mg/dL AST (14-36) U/L Serum Alcohol mg/dL Assessment and Plan Assessment: Plan: EtOH intoxication, impending withdrawal -[facility] protocol -Thiamine, folate, multivitamin -Fall, seizure, aspiration precautions -Monitor electrolytes and replace accordingly Leukocytosis -No signs of active infection at this time. Trending down -Monitor CBC for now Depression with suicidal ideation on presentation: Alcohol-related -Psychiatry consulted, patient cleared for discharge COPD, not in acute exacerbation -C/w home inhalers DVT prophylaxis -Heparin subq The patient is admitted with an anticipated less than 2 midnight stay for evaluation of EtOH intoxication CODE STATUS: Full Code Discussed with: Patient Anticipated discharge date: 1-[address]: Jail
[2020-03-04 14:00] LABS: Amphetamine Screen,Urine Not Detected (NotDetected); Barbiturate Screen,Urine Not Detected (NotDetected); Benzodiazepines Screen,Urine Detected (NotDetected); Cocaine Screen,Urine Not Detected (NotDetected); Methadone Screen, Urine Not Detected (NotDetected); Opiate Screen,Urine Not Detected (NotDetected); Oxycodone Screen, Urine Not Detected (NotDetected); Phencyclidine Screen,Urine Not Detected (NotDetected); Tricyclic Antidepressant,Urine Not Detected (NotDetected); Urn Cannabinoid Scrn Not Detected (NotDetected)
--- NOTE | 2020-03-04 15:08 | P.DS ---
Providers Date of admission: 03/03/20 22:36 Attending physician: Laura Davis MD Consults: 03/03/20 22:34 Consult Physician Urgent Consulting Provider: Tanner Kaplan Consult Reason/Comments: Suicidal ideations Do you want consulting provider notified?: Yes Primary care physician: Stated None Hospital Course: patient left the hospital AGAINST MEDICAL ADVICE. Risks of leaving AGAINST MEDICAL ADVICE were discussed with the patient nursing staff she verbalized understanding of the risks. For further details of this hospitalization please refer to my progress note dated today Plan - Discharge Summary Discharge Rx Participant: Yes New Discharge Prescriptions: No Action traZODone HCL 50 mg PO HS PRN PRN Reason: Insomnia hydrOXYzine PAMOATE 50 mg PO TID Escitalopram [Lexapro] 20 mg PO DAILY Ergocalciferol [Vitamin D2] 50,000 unit PO Q14D Atorvastatin [Lipitor] 20 mg PO DAILY Aspirin EC [Ecotrin Low Dose] 81 mg PO DAILY Multivitamins, Thera [Multivitamin (formulary)] 1 tab PO DAILY Discharge Medication List Escitalopram [Lexapro] 20 mg PO DAILY 11/26/18 [History] hydrOXYzine PAMOATE 50 mg PO TID 11/26/18 [History] traZODone HCL 50 mg PO HS PRN 11/26/18 [History] Aspirin EC [Ecotrin Low Dose] 81 mg PO DAILY 01/27/20 [History] Atorvastatin [Lipitor] 20 mg PO DAILY 01/27/20 [History] Ergocalciferol [Vitamin D2] 50,000 unit PO Q14D 01/27/20 [History] Multivitamins, Thera [Multivitamin (formulary)] 1 tab PO DAILY 03/04/20 [History] Follow up Appointment(s)/Referral(s): None,Stated [Primary Care Provider] - 1-2 days
== END 2020-03-04 15:19 | disposition left against medical advice (07) ==
LOC: EC 20:54 → 5NMEDONC 22:36
PROVIDERS: ADMIT Internal Medicine; ATTEND Internal Medicine
DX: F10.229 Alcohol dependence with intoxication, unspecified (principal); R45.851 Suicidal ideations; D72.829 Elevated white blood cell count, unspecified; F17.200 Nicotine dependence, unspecified, uncomplicated; F32.9 Major depressive disorder, single episode, unspecified; F43.10 Post-traumatic stress disorder, unspecified; J44.9 Chronic obstructive pulmonary disease, unspecified; Y90.8 Blood alcohol level of 240 mg/100 ml or more; Z79.82 Long term (current) use of aspirin; Z79.899 Other long term (current) drug therapy; F41.9 Anxiety disorder, unspecified; Z03.818 Encounter for observation for suspected exposure to other biological agents ruled out
CPT/HCPCS: 96376; 96372 ×2; 96365; 96375; 99285; 36415; 80053; 80048; 83735 ×2; 85025; 85027; 80306; 87635; G0378 ×2; G0480; J2060 ×2; J1644; J3411; 80320; 96361; 96374

== ENCOUNTER 2020-03-07 14:10 | Emergency (ER) | payer OTHER ==
[2020-03-07 14:23] VITALS: RESP 18
--- NOTE | 2020-03-07 14:44 | ED ---
General Adult HPI - General Source: patient, EMS, RN notes reviewed, old records reviewed Mode of arrival: EMS Limitations: no limitations <Sal Marie - Last Filed: 03/07/20 14:42> <Bruce Dorado - Last Filed: 03/07/20 20:19> - General Chief complaint: Psychiatric Symptoms Stated complaint: Mental health Time Seen by Provider: 03/07/20 14:23 - History of Present Illness Initial comments: 64-year-old female presents for reevaluation of depression, alcohol abuse and requesting psychiatric evaluation. She admits to drinking alcohol today. She states she does not have any place ago and that she's been unable to get into a homeless fdc. She states she was suicidal week ago and was admitted at that time. She states she is here today "for help" but is not currently suicidal, no current suicidal plan. Denies any self-harm. No physical complaints. (Sal Marie) - Related Data Home Medications Medication Instructions Recorded Confirmed Escitalopram [Lexapro] 20 mg PO DAILY 11/26/18 03/07/20 hydrOXYzine PAMOATE 50 mg PO TID 11/26/18 03/07/20 traZODone HCL 50 mg PO HS PRN 11/26/18 03/07/20 Aspirin EC [Ecotrin Low Dose] 81 mg PO DAILY 01/27/20 03/07/20 Atorvastatin [Lipitor] 20 mg PO DAILY 01/27/20 03/07/20 Ergocalciferol [Vitamin D2] 50,000 unit PO Q14D 01/27/20 03/07/20 Multivitamins, Thera [Multivitamin 1 tab PO DAILY 03/04/20 03/07/20 (formulary)] Allergies Allergy/AdvReac Type Severity Reaction Status Date / Time No Known Allergies Allergy Verified 03/07/20 17:55 Review of Systems ROS Other: All systems not noted in ROS Statement are negative. <Sal Marie - Last Filed: 03/07/20 14:42> ROS Other: All systems not noted in ROS Statement are negative. <Bruce Dorado - Last Filed: 03/07/20 20:19> ROS Statement: Those systems with pertinent positive or pertinent negative responses have been documented in the HPI. Past Medical History Past Medical History: COPD Additional Past Medical History / Comment(s): put unable to give accurate history at this time History of Any Multi-Drug Resistant Organisms: None Reported Past Surgical History: Section, Orthopedic Surgery, Tonsillectomy Past Psychological History: Anxiety, Depression, PTSD Smoking Status: Current every day smoker Past Alcohol Use History: Occasional Past Drug Use History: None Reported <Sal Marie - Last Filed: 03/07/20 14:42> General Exam Limitations: no limitations General appearance: alert, in no apparent distress, appears intoxicated Head exam: Present: atraumatic, normocephalic Eye exam: Present: normal appearance, PERRL ENT exam: Present: normal exam Neck exam: Present: normal inspection. Absent: tenderness, meningismus Respiratory exam: Present: normal lung sounds bilaterally. Absent: respiratory distress Cardiovascular Exam: Present: regular rate, normal rhythm GI/Abdominal exam: Present: soft. Absent: distended, tenderness, guarding Extremities exam: Present: normal inspection, normal capillary refill. Absent: pedal edema Neurological exam: Present: alert, oriented X3, CN II-XII intact Psychiatric exam: Present: depressed, flat affect. Absent: suicidal ideation Skin exam: Present: warm, dry, intact. Absent: cyanosis, diaphoretic <Sal Marie - Last Filed: 03/07/20 14:42> Course <Sal Marie - Last Filed: 03/07/20 14:42> Vital Signs 03/07/20 14:19 Temperature 98.4 F Pulse Rate 92 Respiratory 18 Rate Blood Pressure 156/98 O2 Sat by Pulse 95 Oximetry - Reevaluation(s) Reevaluation #1: 03/07/20 1500 Patient's care is signed out to Dr. Dorado at shift change awaiting sobriety and EPS evaluation. (Sal Marie) Medical Decision Making <Bruce Dorado - Last Filed: 03/07/20 20:19> - Medical Decision Making Patient seen by mental health services who recommends discharge and did provide follow-up information for alcohol problems. Patient is comfortable with this. Patient denies suicidal ideation and does contract for safety. (Bruce Dorado) - Lab Data Lab Results 03/07/20 Range/Units 15:03 Urine Opiates Screen Not Detected (NotDetected) Ur Oxycodone Screen Not Detected (NotDetected) Urine Methadone Screen Not Detected (NotDetected) Ur Propoxyphene Screen Not Detected (NotDetected) Ur Barbiturates Screen Not Detected (NotDetected) U Tricyclic Antidepress Not Detected (NotDetected) Ur Phencyclidine Scrn Not Detected (NotDetected) Ur Amphetamines Screen Not Detected (NotDetected) U Methamphetamines Scrn Not Detected (NotDetected) U Benzodiazepines Scrn Not Detected (NotDetected) Urine Cocaine Screen Not Detected (NotDetected) U Marijuana (THC) Screen Not Detected (NotDetected) Disposition <Sal Marie - Last Filed: 03/07/20 14:42> Is patient prescribed a controlled substance at d/c from ED?: No Time of Disposition: 20:19 <Bruce Dorado - Last Filed: 03/07/20 20:19> Clinical Impression: Alcohol intoxication Disposition: HOME SELF-CARE Condition: Stable Instructions (If sedation given, give patient instructions): Abuse of Alcohol (ED) Additional Instructions: Please follow-up with primary care physician in the next couple of days for recheck. Please follow-up with alcohol counseling as directed. Return for thoughts of self-harm, worsening symptoms or other concerns. Referrals: Kandi Dailey MD [Primary Care Provider] - 1-2 days
[2020-03-07 15:46] LABS: Amphetamine Screen,Urine Not Detected (NotDetected); Barbiturate Screen,Urine Not Detected (NotDetected); Benzodiazepines Screen,Urine Not Detected (NotDetected); Cocaine Screen,Urine Not Detected (NotDetected); Methadone Screen, Urine Not Detected (NotDetected); Opiate Screen,Urine Not Detected (NotDetected); Oxycodone Screen, Urine Not Detected (NotDetected); Phencyclidine Screen,Urine Not Detected (NotDetected); Tricyclic Antidepressant,Urine Not Detected (NotDetected); Urn Cannabinoid Scrn Not Detected (NotDetected)
[2020-03-07] MEDS ORDERED: LORazepam 1 MG TAB PO STA (18:48)
[2020-03-07 20:28] VITALS: BP 140/81; PULSE 76; TEMP 98.1
== END 2020-03-07 20:30 | disposition home or self-care (01) ==
LOC: EC 14:10
DX: F10.129 Alcohol abuse with intoxication, unspecified (principal); F41.9 Anxiety disorder, unspecified; F32.9 Major depressive disorder, single episode, unspecified; F17.200 Nicotine dependence, unspecified, uncomplicated; Z79.82 Long term (current) use of aspirin; Z79.899 Other long term (current) drug therapy; Z59.0 Homelessness
CPT/HCPCS: 80306; 82075; 99285

== ENCOUNTER 2020-05-19 19:16 | Inpatient (IN) | payer MEDICAID, OTHER ==
[2020-05-19] MEDS ORDERED: SODIUM CHLORIDE 0.9% 1,000 ML IV ONE (20:38)
[2020-05-19] MEDS ORDERED: ONDANSETRON 4 MG/2 ML VIAL IM STA (20:38)
[2020-05-19 21:06] LABS: Appearance,Urine Clear (Clear); Bilirubin,Urine Negative (Negative); Blood,Urine Trace (Negative); Color,Urine Light Yellow; Glucose,Urine (UA) Negative (Negative); Ketones,Urine Negative (Negative); Leukocyte Esterase,Urine Negative (Negative); Mucus,Urine Rare /hpf; Nitrite,Urine Negative (Negative); Protein,Urine Negative (Negative); RBC,Urine 1 /hpf (0-5); Specific Gravity,Urine 1.003 (1.001-1.035); Squamous Epithelial Cell,Urine 1 /hpf (0-4); Urobilinogen,Urine <2.0 mg/dL (<2.0); WBC,Urine 1 /hpf (0-5)
[2020-05-19 21:11] LABS: ALT 15 U/L (4-34); AST 66 U/L (14-36); African American GFR (CKD) >90 (>60 ml/min/1.73 sqM); Albumin 3.3 g/dL (3.5-5.0); Alkaline Phosphatase 95 U/L (38-126); Amylase 89 U/L (30-110); Anion Gap 8 mmol/L; Blood Urea Nitrogen 3 mg/dL (7-17); Calcium 8.6 mg/dL (8.4-10.2); Carbon Dioxide 23 mmol/L (22-30); Chloride 104 mmol/L (98-107); Glucose 107 mg/dL (74-99); INR 0.9 (<1.2); Non-African American GFR(CKD) >90 (>60 ml/min/1.73 sqM); Prothrombin Time 9.8 sec (9.0-12.0); Sodium 135 mmol/L (137-145); Total Bilirubin 0.3 mg/dL (0.2-1.3); Total Protein 5.7 g/dL (6.3-8.2)
[2020-05-19 21:13] LABS: Basophils # (A) 0.1 k/uL (0-0.2); Basophils % (A) 1 %; Eosinophils # (A) 0.2 k/uL (0-0.7); Eosinophils % (A) 2 %; HCT 49.6 % (34.0-46.0); HGB 15.6 gm/dL (11.4-16.0); Lymphocytes # (A) 3.9 k/uL (1.0-4.8); Lymphocytes % (A) 41 %; MCH 31.4 pg (25.0-35.0); MCHC 31.5 g/dL (31.0-37.0); MCV 99.8 fL (80.0-100.0); Macrocytosis Slight; Mean Platelet Volume 7.3; Monocytes # (A) 0.6 k/uL (0-1.0); Monocytes % (A) 7 %; Neutrophils # (A) 4.4 k/uL (1.3-7.7); Neutrophils % (A) 47 %; Platelet Count 189 k/uL (150-450); RBC 4.98 m/uL (3.80-5.40); RDW 15.1 % (11.5-15.5); WBC 9.4 k/uL (3.8-10.6)
[2020-05-19 21:15] LABS: Alcohol 139 mg/dL
--- NOTE | 2020-05-19 21:32 | XR ---
EXAMINATION TYPE: XR Hip RT and AP Pelvis DATE OF EXAM: 05/19/2020 COMPARISON: NONE HISTORY: Hip pain TECHNIQUE: 3 views FINDINGS: Pelvic ring is intact. Proximal right femur and hip joint are intact. Sacroiliac joints abhinav ear normal. There is no evidence of a fracture. IMPRESSION: Negative right hip exam.
[2020-05-19 21:45] LABS: Amphetamine Screen,Urine Not Detected (NotDetected); Barbiturate Screen,Urine Detected (NotDetected); Benzodiazepines Screen,Urine Not Detected (NotDetected); Cocaine Screen,Urine Not Detected (NotDetected); Methadone Screen, Urine Not Detected (NotDetected); Opiate Screen,Urine Not Detected (NotDetected); Oxycodone Screen, Urine Not Detected (NotDetected); Phencyclidine Screen,Urine Not Detected (NotDetected); Tricyclic Antidepressant,Urine Not Detected (NotDetected); Urn Cannabinoid Scrn Not Detected (NotDetected)
--- NOTE | 2020-05-19 22:11 | ED ---
Psych HPI - General Chief Complaint: Psychiatric Symptoms Stated Complaint: mental health Time Seen by Provider: 05/19/20 19:30 Source: patient Mode of arrival: ambulatory - History of Present Illness Initial Comments: The patient is a 64-year-old female with past medical history of alcohol abuse who presents to the emergency room stating that she feels depressed and she wants to jump in the river and drown. When I attempted to evaluate the patient she states that she has not had any food due to lack of funds. Also reports right hip pain and bright red blood per rectum. Patient states she feels dehydrated. Denies any vomiting. No abdominal pain. Denies any melenic s tools. No history of peptic ulcer disease. Patient has pressured and depressed speech. Patient denies doing anything to harm herself. Does admit to drinking tonight. There are no other alleviating, precipitating or modifying factors - Related Data Previous Rx's Medication Instructions Recorded Acetaminophen Tab [Tylenol] 650 mg PO Q4HR PRN 30 Days tab 05/25/20 Aspirin EC [Ecotrin Low Dose] 81 mg PO DAILY 30 Days tab 05/25/20 Atorvastatin [Lipitor] 20 mg PO DAILY 30 Days tab 05/25/20 Cyclobenzaprine [Flexeril] 5 mg PO BID PRN 30 Days #60 tab 05/25/20 DULoxetine HCL [Cymbalta] 60 mg PO DAILY 30 Days capsule. 05/25/20 Folic Acid 1 mg PO DAILY 30 Days tab 05/25/20 Ibuprofen [Motrin] 600 mg PO Q8H PRN 30 Days tab 05/25/20 Multivitamins, Thera [Multivitamin 1 tab PO DAILY 30 Days tab 05/25/20 (formulary)] Nicotine 14Mg/24Hr Patch [Habitrol] 1 patch TRANSDERM DAILY 14 Days 05/25/20 patch QUEtiapine [SEROquel] 50 mg PO HS 30 Days tab 05/25/20 Allergies Allergy/AdvReac Type Severity Reaction Status Date / Time No Known Allergies Allergy Verified 05/19/20 19:29 Review of Systems ROS Statement: Those systems with pertinent positive or pertinent negative responses have been documented in the HPI. ROS Other: All systems not noted in ROS Statement are negative. Past Medical History Past Medical History: COPD Additional Past Medical History / Comment(s): ETOH abuse History of Any Multi-Drug Resistant Organisms: None Reported Past Surgical History: Section, Orthopedic Surgery, Tonsillectomy Past Psychological History: Anxiety, Depression, PTSD Smoking Status: Current every day smoker Past Alcohol Use History: Abuse Past Drug Use History: None Reported General Exam Limitations: no limitations General appearance: alert, appears intoxicated Head exam: Present: atraumatic, normocephalic, normal inspection Eye exam: Present: normal appearance, PERRL, EOMI. Absent: scleral icterus, conjunctival injection, periorbital swelling ENT exam: Present: normal exam, mucous membranes moist Neck exam: Present: normal inspection. Absent: tenderness, meningismus, lymphadenopathy Respiratory exam: Present: normal lung sounds bilaterally. Absent: respiratory distress, wheezes, rales, rhonchi, stridor Cardiovascular Exam: Present: regular rate, normal rhythm, normal heart sounds. Absent: systolic murmur, diastolic murmur, rubs, gallop, clicks GI/Abdominal exam: Present: soft, normal bowel sounds. Absent: distended, tenderness, guarding, rebound, rigid Rectal exam: Present: normal rectal tone, heme (-) stool. Absent: black stool, bloody stool, fecal impaction Extremities exam: Present: normal inspection, full ROM, normal capillary refill. Absent: tenderness, pedal edema, joint swelling, calf tenderness Back exam: Present: normal inspection Neurological exam: Present: alert, altered, CN II-XII intact Psychiatric exam: Present: normal affect, depressed Skin exam: Present: warm, dry, intact, normal color. Absent: rash Course Vital Signs 05/19/20 05/20/20 19:25 02:13 Temperature 98.6 F 98.2 F Pulse Rate 96 92 Respiratory 18 16 Rate Blood Pressure 128/75 168/97 O2 Sat by Pulse 92 L 94 L Oximetry Medical Decision Making - Medical Decision Making Upon arrival the patient is placed into room 5. For history and physical exam was performed. Provide was established. The patient was given a liter bolus of normal saline. Patient is also given 4 g of Zofran for nausea. Patient does have a breathalyzer of 0.11. Her exam is performed and demonstrates no melanic stools or hematochezia. Results of the labs demonstrate a hemoglobin of 15.6. Fecal occult is negative. Alcohol is 139. Barbiturates positive in the urine. Patient will be medically clear at midnight when she is sober. She'll be evaluated by EPS at this time. Case will be signed out to the overnight doctor. Patient's lab studies demonstrates a glucose of 107. Sodium 135. Potassium 4. Creatinine 0.5. AST 66. Lipase 65. Alcohol 139. - Lab Data Result diagrams: 05/19/20 20:54 05/19/20 20:54 Lab Results 05/19/20 05/19/20 05/19/20 Range/Units 20:54 20:54 20:54 WBC 9.4 (3.8-10.6) k/uL RBC 4.98 (3.80-5.40) m/uL Hgb 15.6 (11.4-16.0) gm/dL Hct 49.6 H (34.0-46.0) % MCV 99.8 (80.0-100.0) fL MCH 31.4 (25.0-35.0) pg MCHC 31.5 (31.0-37.0) g/dL RDW 15.1 (11.5-15.5) % Plt Count 189 (150-450) k/uL Neutrophils % 47 % Lymphocytes % 41 % Monocytes % 7 % Eosinophils % 2 % Basophils % 1 % Neutrophils # 4.4 (1.3-7.7) k/uL Lymphocytes # 3.9 (1.0-4.8) k/uL Monocytes # 0.6 (0-1.0) k/uL Eosinophils # 0.2 (0-0.7) k/uL Basophils # 0.1 (0-0.2) k/uL Macrocytosis Slight PT 9.8 (9.0-12.0) sec INR 0.9 (<1.2) APTT 24.0 (22.0-30.0) sec Sodium (137-145) mmol/L Potassium (3.5-5.1) mmol/L Chloride (98-107) mmol/L Carbon Dioxide (22-30) mmol/L Anion Gap mmol/L BUN (7-17) mg/dL Creatinine (0.52-1.04) mg/dL Est GFR (CKD-EPI)AfAm (>60 ml/min/1.73 sqM) Est GFR (CKD-EPI)NonAf (>60 ml/min/1.73 sqM) Glucose (74-99) mg/dL Calcium (8.4-10.2) mg/dL Magnesium (1.6-2.3) mg/dL Total Bilirubin (0.2-1.3) mg/dL AST (14-36) U/L ALT (4-34) U/L Alkaline Phosphatase (38-126) U/L Total Protein (6.3-8.2) g/dL Albumin (3.5-5.0) g/dL Amylase (30-110) U/L Lipase (23-300) U/L Urine Color Light Yellow Urine Appearance Clear (Clear) Urine pH 5.0 (5.0-8.0) Ur Specific [place] 1.003 (1.001-1.035) Urine Protein Negative (Negative) Urine Glucose (UA) Negative (Negative) Urine Ketones Negative (Negative) Urine Blood Trace H (Negative) Urine Nitrite Negative (Negative) Urine Bilirubin Negative (Negative) Urine Urobilinogen <2.0 (<2.0) mg/dL Ur Leukocyte Esterase Negative (Negative) Urine RBC 1 (0-5) /hpf Urine WBC 1 (0-5) /hpf Ur Squamous Epith Cells 1 (0-4) /hpf Urine Mucus Rare H (None) /hpf Stool Occult Blood (Negative) Urine Opiates Screen Not Detected (NotDetected) Ur Oxycodone Screen Not Detected (NotDetected) Urine Methadone Screen Not Detected (NotDetected) Ur Propoxyphene Screen Not Detected (NotDetected) Ur Barbiturates Screen Detected H (NotDetected) U Tricyclic Antidepress Not Detected (NotDetected) Ur Phencyclidine Scrn Not Detected (NotDetected) Ur Amphetamines Screen Not Detected (NotDetected) U Methamphetamines Scrn Not Detected (NotDetected) U Benzodiazepines Scrn Not Detected (NotDetected) Urine Cocaine Screen Not Detected (NotDetected) U Marijuana (THC) Screen Not Detected (NotDetected) Serum Alcohol mg/dL 05/19/20 05/19/20 Range/Units 20:54 22:21 WBC (3.8-10.6) k/uL RBC (3.80-5.40) m/uL Hgb (11.4-16.0) gm/dL Hct (34.0-46.0) % MCV (80.0-100.0) fL MCH (25.0-35.0) pg MCHC (31.0-37.0) g/dL RDW (11.5-15.5) % Plt Count (150-450) k/uL Neutrophils % % Lymphocytes % % Monocytes % % Eosinophils % % Basophils % % Neutrophils # (1.3-7.7) k/uL Lymphocytes # (1.0-4.8) k/uL Monocytes # (0-1.0) k/uL Eosinophils # (0-0.7) k/uL Basophils # (0-0.2) k/uL Macrocytosis PT (9.0-12.0) sec INR (<1.2) APTT (22.0-30.0) sec Sodium 135 L (137-145) mmol/L Potassium 4.0 (3.5-5.1) mmol/L Chloride 104 (98-107) mmol/L Carbon Dioxide 23 (22-30) mmol/L Anion Gap 8 mmol/L BUN 3 L (7-17) mg/dL Creatinine 0.56 (0.52-1.04) mg/dL Est GFR (CKD-EPI)AfAm >90 (>60 ml/min/1.73 sqM) Est GFR (CKD-EPI)NonAf >90 (>60 ml/min/1.73 sqM) Glucose 107 H (74-99) mg/dL Calcium 8.6 (8.4-10.2) mg/dL Magnesium 2.0 (1.6-2.3) mg/dL Total Bilirubin 0.3 (0.2-1.3) mg/dL AST 66 H (14-36) U/L ALT 15 (4-34) U/L Alkaline Phosphatase 95 (38-126) U/L Total Protein 5.7 L (6.3-8.2) g/dL Albumin 3.3 L (3.5-5.0) g/dL Amylase 89 (30-110) U/L Lipase 65 (23-300) U/L Urine Color Urine Appearance (Clear) Urine pH (5.0-8.0) Ur Specific [place] (1.001-1.035) Urine Protein (Negative) Urine Glucose (UA) (Negative) Urine Ketones (Negative) Urine Blood (Negative) Urine Nitrite (Negative) Urine Bilirubin (Negative) Urine Urobilinogen (<2.0) mg/dL Ur Leukocyte Esterase (Negative) Urine RBC (0-5) /hpf Urine WBC (0-5) /hpf Ur Squamous Epith Cells (0-4) /hpf Urine Mucus (None) /hpf Stool Occult Blood Negative (Negative) Urine Opiates Screen (NotDetected) Ur Oxycodone Screen (NotDetected) Urine Methadone Screen (NotDetected) Ur Propoxyphene Screen (NotDetected) Ur Barbiturates Screen (NotDetected) U Tricyclic Antidepress (NotDetected) Ur Phencyclidine Scrn (NotDetected) Ur Amphetamines Screen (NotDetected) U Methamphetamines Scrn (NotDetected) U Benzodiazepines Scrn (NotDetected) Urine Cocaine Screen (NotDetected) U Marijuana (THC) Screen (NotDetected) Serum Alcohol 139 mg/dL Disposition Clinical Impression: Depression, Alcohol use disorder, severe, dependence Disposition: ADMITTED IP TO THIS [facility] Condition: Stable Is patient prescribed a controlled substance at d/c from ED?: No
[2020-05-20] MEDS ORDERED: chlordiazePOXIDE 25 MG CAP PO ONE (02:00)
[2020-05-20] MEDS ORDERED: MAGNESIUM HYDROXIDE 2,400 MG/10 ML CUP PO PRN (03:29)
[2020-05-20] MEDS ORDERED: MAG HYDROX/AL HYDROX/SIMETH 30 ML CUP PO PRN (03:29)
[2020-05-20] MEDS ORDERED: LORazepam 2 MG/ML INJ IM PRN (08:00)
[2020-05-20] MEDS: NICOTINE 14MG/24HR PATCH TRANSDERM SCH (08:31)
[2020-05-20] MEDS ORDERED: ZIPRASIDONE 20 MG VIAL IM PRN (09:00)
[2020-05-20] MEDS: LORazepam 1 MG TAB PO PRN ×3 (09:00→21:39)
[2020-05-20] MEDS: ACETAMINOPHEN TAB 325 MG TAB PO PRN ×2 (09:00→13:00)
[2020-05-20 09:01] LABS: Albumin 3.4 g/dL (3.5-5.0); Bilirubin, Delta 0.1 mg/dL (0.0-0.2); Bilirubin,Unconjugated 0.6 mg/dL (0.0-1.1); Total Bilirubin 0.7 mg/dL (0.2-1.3); Total Protein 5.9 g/dL (6.3-8.2)
--- NOTE | 2020-05-20 17:20 | P.CONS ---
History of Present Illness - Reason for Consult Medical clearance - History of Present Illness 64-year-old female is admitted to psychiatric floor after depression and suicidal ideation. Patient does admit to drinking alcohol appears to be drinking alcohol on daily basis although doesn't have any significant withdrawals now. Patient the is admitted for alcoholism as well. Patient can use to smoke. Patient had any fever chills nausea vomiting abdominal pain dysuria. Patient is very pleasant when I evaluated the patient. Review of Systems REVIEW OF SYSTEMS: CONSTITUTIONAL: No fever, no malaise, no fatigue. HEENT: No recent visual problems or hearing problems. Denied any sore throat. CARDIOVASCULAR: No chest pain, orthopnea, PND, no palpitations, no syncope. PULMONARY: No shortness of breath, no cough, no hemoptysis. GASTROINTESTINAL: No diarrhea, no nausea, no vomiting, no abdominal pain. NEUROLOGICAL: No headaches, no weakness, no numbness. HEMATOLOGICAL: Denies any bleeding or petechiae. GENITOURINARY: Denies any burning micturition, frequency, or urgency. MUSCULOSKELETAL/RHEUMATOLOGICAL: Denies any joint pain, swelling, or any muscle pain. ENDOCRINE: Denies any polyuria or polydipsia. The rest of the 14-point review of systems is negative. Past Medical History Past Medical History: COPD Additional Past Medical History / Comment(s): ETOH abuse History of Any Multi-Drug Resistant Organisms: None Reported Past Surgical History: Section, Orthopedic Surgery, Tonsillectomy Past Psychological History: Anxiety, Depression, PTSD Smoking Status: Current every day smoker Past Alcohol Use History: Abuse Past Drug Use History: None Reported Medications and Allergies Home Medications Medication Instructions Recorded Confirmed Type Escitalopram [Lexapro] 20 mg PO DAILY 11/26/18 03/07/20 History hydrOXYzine PAMOATE 50 mg PO TID 11/26/18 03/07/20 History traZODone HCL 50 mg PO HS PRN 11/26/18 03/07/20 History Aspirin EC [Ecotrin Low Dose] 81 mg PO DAILY 01/27/20 03/07/20 History Atorvastatin [Lipitor] 20 mg PO DAILY 01/27/20 03/07/20 History Ergocalciferol [Vitamin D2] 50,000 unit PO Q14D 01/27/20 03/07/20 History Multivitamins, Thera [Multivitamin 1 tab PO DAILY 03/04/20 03/07/20 History (formulary)] Allergies Allergy/AdvReac Type Severity Reaction Status Date / Time No Known Allergies Allergy Verified 05/19/20 19:29 Physical Exam Vitals: Vital Signs Temp Pulse Pulse Resp BP BP Pulse Ox 05/20/20 09:02 107 H 20 132/90 05/20/20 03:13 98.7 F 90 15 134/89 100 05/20/20 02:13 98.2 F 92 16 168/97 94 L 05/19/20 19:25 98.6 F 96 18 128/75 92 L Intake and Output 05/20/20 05/20/20 05/20/20 06:59 14:59 22:59 Other: Weight 72.4 kg PHYSICAL EXAMINATION: GENERAL: The patient is alert and oriented x3, not in any acute distress. Well developed, well nourished. HEENT: Pupils are round and equally reacting to light. EOMI. No scleral icterus. No conjunctival pallor. Normocephalic, atraumatic. No pharyngeal erythema. No thyromegaly. CARDIOVASCULAR: S1 and S2 present. No murmurs, rubs, or gallops. PULMONARY: Chest is clear to auscultation, no wheezing or crackles. ABDOMEN: Soft, nontender, nondistended, normoactive bowel sounds. No palpable organomegaly. MUSCULOSKELETAL: No joint swelling or deformity. EXTREMITIES: No cyanosis, clubbing, or pedal edema. NEUROLOGICAL: Gross neurological examination did not reveal any focal deficits. SKIN: No rashes. Results CBC & Chem 7: 05/19/20 20:54 05/19/20 20:54 Labs: Abnormal Lab Results - Last 24 Hours (Table) 05/19/20 05/19/20 05/19/20 Range/Units 20:54 20:54 20:54 Hct 49.6 H (34.0-46.0) % Sodium 135 L (137-145) mmol/L BUN 3 L (7-17) mg/dL Glucose 107 H (74-99) mg/dL AST 66 H (14-36) U/L Total Protein 5.7 L (6.3-8.2) g/dL Albumin 3.3 L (3.5-5.0) g/dL HDL Cholesterol (40-60) mg/dL Urine Blood Trace H (Negative) Urine Mucus Rare H (None) /hpf Ur Barbiturates Screen Detected H (NotDetected) 05/20/20 Range/Units 07:37 Hct (34.0-46.0) % Sodium (137-145) mmol/L BUN (7-17) mg/dL Glucose (74-99) mg/dL AST 62 H (14-36) U/L Total Protein 5.9 L (6.3-8.2) g/dL Albumin 3.4 L (3.5-5.0) g/dL HDL Cholesterol 76 H (40-60) mg/dL Urine Blood (Negative) Urine Mucus (None) /hpf Ur Barbiturates Screen (NotDetected) Assessment and Plan Plan: -Major depression and suicidal admission: Management as per primary service Alcoholism with mild alcoholic hepatitis liver enzymes are only minimally elevated can be resumed on statin. She is more being monitored for withdrawals as well patient doesn't have any significant withdrawals at this time -COPD without any acute exacerbation patient can use to smoke
[2020-05-20] MEDS: QUEtiapine 50 MG TAB PO SCH (21:39)
--- NOTE | 2020-05-20 23:12 | HP ---
HISTORY AND PHYSICAL DATE OF SERVICE: 05/20/2020. IDENTIFYING DATA: The patient is a 64-year-old female seen receiving social security disability since November of 2019 and currently living in a motel. She is a mother of three grownup children. HISTORY OF PRESENT ILLNESS: The patient presented yesterday to the hospital with depression and suicidal ideation with a plan to slash her wrists. At the time of her arrival to the emergency room, her blood alcohol was 1.39. I reviewed the medical record and I interviewed the patient. The patient reported history of depression since her early 30's; however, her depression has been getting worse for the last couple of months. She reports poor appetite, hopeless, helpless, feeling overwhelmed, poor concentration, no energy and sleep impairment. Patient stated that she is still feeling suicidal, but she does not have any plan. Patient endorses high anxiety and she stated that her anxiety has been getting worse since she has been not able to stop drinking. Patient stated that she was very upset over her living situation and very frustrated as she is not able to find any stable housing. She is concerned that she does not have enough money to stay is the motel. Patient also is frustrated as she is not able to stop drinking despite her admission to rehabilitation for more than 15 times. Patient stated that she is estranged from her children, as "my daughter did not talk to me for the last couple of months because of my drinking." Patient was recently [facility] for alcohol rehabilitation for 28 days and was discharged 1 month ago. However, she relapsed on alcohol as soon as she left the program. PAST PSYCHIATRIC HISTORY: She reported that she was admitted 7 years ago at [facility] only for 72 hours as she was intoxicated and tried to slash her wrists. She has been in outpatient treatment since her early s for depression and anxiety. She stated that she was diagnosed with PTSD in 2003 after she found out her son diseased with overdose of alcohol and pain medication. For the last couple of years, she has been getting her psychotropic medication from her primary care physician and she has been on Lexapro 20 mg daily and trazodone 50 mg at bedtime. According to her, this combination is not working anymore. PAST PSYCHOTROPIC MEDICATION: She tried gabapentin, also she tried Seroquel 50 mg at bedtime and it was effective. According to her is the only medication she did try and it was effective was Ativan or Xanax. MEDICAL HISTORY: There is history of COPD, history of high cholesterol and history of arthritis especially in her hip and knee. Borderline diabetes. ALLERGIES: There is no known allergy. Her current vital sign, pulse 107, respiration 20, blood pressure 152/90. Her weight is 72.4 kg. Her home medications were Lexapro 20 mg daily, hydroxyzine or Vistaril 50 mg 3 times a day as needed, trazodone 50 mg at bedtime as needed, Lipitor 20 mg daily, aspirin 81 mg daily, multivitamin, vitamin D, and folic acid. SUBSTANCE USE HISTORY: Alcohol, she has been starting using alcohol since her early 30's and according to her, she does drink whiskey, but she was very vague about the amount that she has been consuming. She believes that she has been approximately in 15 rehabilitation programs in [place] and also in [place], but she has no significant time of abstinence. She denied any history of seizure or DT. She reported that she has history of hand tremor and restless feeling and "feeling shaky when she tried to stop drinking." Patient denied any other illicit drug use. FAMILY PSYCHIATRIC AND SUBSTANCE ABUSE HISTORY: She stated that her son who unintentionally with overdose of alcohol and pain medication. He was addicted to alcohol and opiate. SOCIAL HISTORY: Patient was born in [place] and she immigrated with her family to [place] at age 17. She dropped out of school at 10th grade when she gets , later on she got her GED. She has 3 living grownup children, only 1 living in [place] is her daughter. Patient lost her son, who was just 23 years of age in 2003. The patient has been and 7 times. She does receive social security disability since November of 2019 for arthritis and PTSD. Patient has no stable housing for the last couple of years and has been currently living in [facility]. MENTAL STATUS EXAMINATION: The patient was wearing hospital gown with long [place] hair, superficially cooperative. Her hygiene and grooming are fair. She gave good eye contact. She was restless and guarded at times, especially when it comes to her drinking problem. Her speech was non spontaneous, but coherent and non pressured. Her voice is very soft. She stated that her mood "very nervous and depressed." Her affect is constricted. She stated that she is still endorsing suicidal ideation, but without any intent or plan. She denied any homicidal ideation. The patient denied any visual hallucination. Denied any auditory hallucination. There is no evidence of any delusional thinking and her thought process is linear and goal directed. She is alert, oriented x3. Her memory is grossly intact. Her judgment and insight are poor. Her strength and weakness, strength: patient has income as she is receiving social security disability. However, her weakness is due to her chronic alcohol use, lack of housing. She is estranged from everyone in her family. Intellectual capacity, average. IMPRESSION: 1. Major depression disorder, recurrent. 2. Moderate alcohol use disorder, severe dependence. PLAN: Patient is admitted under voluntary status to the mental health unit for stabilization of psychiatric symptoms and safety. Patient did sign a voluntary form and medication consent. MEDICATION: I would discontinue her current psychotropic medication, trazodone and Lexapro and I will start her on Zoloft 50 mg in the morning for mood and anxiety and Seroquel 50 mg at bedtime for sleep. The patient will be consult on her substance abuse problem and currently she will be on Ativan for any withdrawal symptoms. The patient was informed of the risks and benefits and side effects of medication. Internal Medicine will be consulted to perform medical evaluation and physical exam, especially if she has history of high cholesterol, but she has been noncompliant with her Lipitor. carry in worker will be on board for discharge planning. Will encourage patient to participate in group activity and to work on her coping skills. Likely she will be discharged in 3 to 5 days. WOODY / DAVID: [id number] /
[2020-05-21] MEDS: ATORVASTATIN 20 MG TAB PO SCH (08:14)
[2020-05-21] MEDS: FOLIC ACID 1 MG TAB PO SCH (08:14)
[2020-05-21] MEDS: LORazepam 1 MG TAB PO PRN ×2 (08:14→16:29)
[2020-05-21] MEDS: ASPIRIN 81 MG PO SCH (08:14)
[2020-05-21] MEDS: NICOTINE 14MG/24HR PATCH TRANSDERM SCH (08:15)
[2020-05-21] MEDS: ACETAMINOPHEN TAB 325 MG TAB PO PRN ×3 (08:15→21:32)
[2020-05-21] MEDS ORDERED: SERTRALINE 50 MG TAB PO SCH (09:00)
--- NOTE | 2020-05-21 12:14 | P.PN ---
Progress Note - Text Progress Note Date: 05/21/20 Interval History: Patient was seen wandering the hallways and was directable and agreeable to georgi becerra with marketing copywriter in the office. Patient appeared to have a limping gait and when asked if she was in pain patient began speaking of her right hip pain which appeared to be chronic. She states that she came to the hospital initially for help with her pain and stated that she was suicidal due to the pain. She claims that she believes she does have a alcohol use problem and spoke about the situation and I let her to come into the hospital. She states that her withdrawal symptoms have been improving with the Ativan. She claims that her mood has been "about the same" and was agreeable to have her Zoloft switched to Cymbalta today. She states that she was able to sleep well last night with the Seroquel. She claims that she has not gone to many groups so far has a fair appetite. At this time patient denies any suicidal or homical ideations, intent or plan. Patient denies any auditory, visual hallucinations and denies any paranoia or delusions. Patient denies any side effects from the medications and has been compliant with meds. Mental Status Exam: General Appearance: Patient appears to be older than stated age is, thin and alert, directable, and demanding Behavior: Patient is calmly seated without any agitated behavior. Demanding and preoccupied pain. Speech: Patient's speech is fluent and nonpressured. Mood/Affect: Mood is "about the same", affect is congruent and constricted. Suicidality/Homicidality: Patient denies having any suicidal or homicidal ideation intent or plan. Perceptions: Patient denies any visual hallucinations and denies any auditory hallucinations Though content/process: There is no evidence of any delusional thought content and thought process is linear and goal-directed. Focused on her pain and housing. Memory and concentration: AOX3, grossly intact for the purposes of this session Judgment and insight: Poor Assessment Major depressive disorder, recurrent, severe Alcohol use disorder, severe dependence Plan: -Patient continues to meet criteria for inpatient psychiatric admission for symptom stabilization and safety. Patient has signed adult voluntary form and medication consent and was placed in patient's chart. -Medications: Switched to Zoloft to Cymbalta for mood/anxiety/pain, we'll start with 30 mg today and tomorrow and titrate up to 60 mg on Sunday. Continue with Seroquel 50 mg daily at bedtime for insomnia/mood stabilization. -When necessary Ativan and Geodon for agitation/aggression. -Hip x-ray on admission was negative for any acute changes. -Continue with [facility] protocol for alcohol withdrawal with when necessary Ativan. -NRT - nicotine patch -SW on board for discharge planning. Encouraged the patient to participate in milieu. Patient will either be discharged to half-way versus rehab. Likely discharge her early next week.
[2020-05-21] MEDS: DULoxetine HCL 30 MG CAPSULE.DR PO SCH (13:31)
[2020-05-21] MEDS: IBUPROFEN 600 MG TAB PO PRN ×2 (13:33→21:32)
[2020-05-21] MEDS: QUEtiapine 50 MG TAB PO SCH (21:30)
[2020-05-22] MEDS: NICOTINE 14MG/24HR PATCH TRANSDERM SCH (08:27)
[2020-05-22] MEDS: ATORVASTATIN 20 MG TAB PO SCH (08:29)
[2020-05-22] MEDS: FOLIC ACID 1 MG TAB PO SCH (08:29)
[2020-05-22] MEDS: DULoxetine HCL 30 MG CAPSULE.DR PO SCH (08:29)
[2020-05-22] MEDS: ASPIRIN 81 MG PO SCH (08:29)
[2020-05-22] MEDS: IBUPROFEN 600 MG TAB PO PRN ×2 (08:29→15:31)
[2020-05-22] MEDS: LORazepam 1 MG TAB PO PRN ×2 (08:29→15:31)
[2020-05-22] MEDS: ACETAMINOPHEN TAB 325 MG TAB PO PRN ×3 (09:30→21:44)
--- NOTE | 2020-05-22 16:45 | P.PN ---
Progress Note - Text Progress Note Date: 05/22/20 Subjective: Patient was seen today as a cross coverage for . The patient was evaluated, chart reviewed, case discussed with the treatment team. Patient reported good sleep last night. Appetite was reported as " getting better". Patient has been going to some groups and other unit activities. The patient is compliant with her medications and denies any adverse reactions. Patient reports feeling better emotionally but continued to complain of leg pain. She reports is still feeling some depression, but denies suicidal ideation. Reports continued to have some alcohol withdrawal symptoms mainly shakes but not severe as before. Denies any manic or psychotic symptoms. Continue to take her psychiatric medications with no side effects. Patient tolerated to switching from Zoloft to Cymbalta. Objective: Vitals has been reviewed. Mental status examination; Appearance: The patient appears stated age, adequately groomed and dressed, no specific features. Gait/posture: Normal gait, Normal arm swinging: No abnormal movements. Attitude and behavior: engaged, cooperative, eye contact. Motor activity: Normal psychomotor activity Speech: Normal rate, tone. Mood: Anxious, depressed Affect: Constricted Thought form: goal-directed, linear, coherent. Thought content: Non-delusional, denies suicidal thoughts, denies homicidal thoughts, denies intentions or plans. Perception: Denies any auditory or visual hallucinations Attention: No impairment. Orientation: Patient patient was fully oriented to time place person and situation. Insight: Patient has fair insight about her psychiatric disorder. Judgment: Patient has fair judgment about her psychiatric treatment. Assessment: Major depressive disorder, recurrent, severe without psychotic features. Alcohol use disorder, severe. Plan: Continue inpatient level of care due to need for further stabilization and monitoring Precautions: Continue 15 minutes check for safety. Consider medical consultation if any acute medical issues arise. Provide the patient individual, group therapy, substance use disorder counseling to give better insight and learn coping skills. Continue follow-up with the patient daily to monitor progress of depression and alcohol withdrawal symptoms. Medications: Cymbalta for depression and anxiety. Seroquel at bedtime for mood stabilization and insomnia. Continue monitoring alcohol withdrawal and he consider when necessary Ativan Discharge patient to OUTPATIENT services upon a stabilization
[2020-05-22] MEDS: QUEtiapine 50 MG TAB PO SCH (21:42)
[2020-05-23] MEDS: ATORVASTATIN 20 MG TAB PO SCH (08:06)
[2020-05-23] MEDS: ACETAMINOPHEN TAB 325 MG TAB PO PRN ×3 (08:06→17:35)
[2020-05-23] MEDS: ASPIRIN 81 MG PO SCH (08:06)
[2020-05-23] MEDS: DULoxetine HCL 60 MG CAPSULE.DR PO SCH (08:06)
[2020-05-23] MEDS: FOLIC ACID 1 MG TAB PO SCH (08:06)
[2020-05-23] MEDS: LORazepam 1 MG TAB PO PRN ×2 (08:06→15:04)
[2020-05-23] MEDS: IBUPROFEN 600 MG TAB PO PRN ×2 (08:07→17:34)
[2020-05-23] MEDS: NICOTINE 14MG/24HR PATCH TRANSDERM SCH ×2 (08:08→13:25)
--- NOTE | 2020-05-23 15:02 | P.PN ---
Progress Note - Text Progress Note Date: 05/23/20 Subjective: Patient was seen today as a cross coverage for . The patient was evaluated, chart reviewed, case discussed with the treatment team. Patient reports good sleep last night and denies any appetite problems. Patient continues going to groups and other unit activities. She continues to take her psychiatric medications and he denies any side effects. She reports feeling stable emotionally and he denies feeling hopeless or suicidal. She denies any manic or psychotic symptoms. Reports feeling frustrated and sad about her hip pain and she continued to have right hip pain. She denies any alcohol withdrawal symptoms. Objective: Mental status examination; Appearance: The patient appears stated age, adequately groomed and dressed, no specific features. Gait/posture: Normal gait, Normal arm swinging: No abnormal movements. Attitude and behavior: engaged, cooperative, eye contact. Motor activity: Normal psychomotor activity Speech: Normal rate, tone. Mood: Anxious Affect: Constricted Thought form: goal-directed, linear, coherent. Thought content: Non-delusional, denies suicidal thoughts, denies homicidal thoughts, denies intentions or plans. Perception: Denies any auditory or visual hallucinations Attention: No impairment. Orientation: Patient patient was fully oriented to time place person and situation. Insight: Patient has fair insight about her psychiatric disorder. Judgment: Patient has fair judgment about her psychiatric treatment. Assessment: Major depressive disorder, recurrent, severe without psychotic features. Alcohol use disorder, severe. Plan: Continue inpatient level of care due to need for further stabilization and monit oring Precautions: Continue 15 minutes check for safety. Consider medical consultation if any acute medical issues arise. Provide the patient individual, group therapy, substance use disorder counseling to give better insight and learn coping skills. Continue follow-up with the patient daily to monitor progress of depression and alcohol withdrawal symptoms. Medications: Cymbalta for depression and anxiety. Seroquel at bedtime for mood stabilization and insomnia. Continue monitoring alcohol withdrawal and he consider when necessary Ativan Non-psychiatric medications including muscle relaxant and Tylenol for hip pain. Discharge patient to OUTPATIENT services upon a stabilization
--- NOTE | 2020-05-23 15:05 | XR ---
Right hip HISTORY: Right hip pain 2 views of the right hip Bone mineralization, joint spaces and alignment are maintained. IMPRESSION: No fracture or dislocation.
--- NOTE | 2020-05-23 15:46 | P.PN ---
Progress Note - Text Progress Note Date: 05/23/20 Subjective: Patient was seen today as a cross coverage for Dr. Kaplan. The patient was evaluated, chart reviewed, case discussed with the treatment team. Patient reported better sleep last night and eating more today. Patient has been going to groups and other unit activities. The patient is compliant with her medications and denies any adverse reactions. She reports generally feeling better and minimizes depression. She denies feeling hopeless or suicidal today. Patient reports had severe right shoulder pain which is related to an injury happened a few weeks ago which caused her limited range of movement. She denies any manic or psychotic symptoms, and minimizes alcohol withdrawal symptoms. Objective: Vitals has been reviewed. Mental status examination; Appearance: Appears stated age, fairly groomed, average body built, and no specific features. Gait/ posture: Steady gait, normal arm swinging, no abnormal movements, with relaxed posture. Attitude and Behavior: Engaged, related to the interviewer in socially accepted manner, fair eye contact during course of interview. Motor Activity: Normal psychomotor activity. Speech: spontaneous, normal rate, rhythm, and articulation. Normal volume. Not pressured. Language: Articulating, naming objects and repeat phrases. Mood: Depressed Affect: constricted. Thought process: Linear goal-directed. Association: intact. Thought content: Denies delusions, denies current suicidal thoughts, eyes homicidal thoughts, no intentions, or plans. Perception: Denies any hallucinations Alertness: No impairment. Concentration: Intact Orientation: Patient was oriented to time, place, person, and situation Insight regarding psychiatric condition: Patient has fair insight about her psychiatric condition Judgment regarding daily activities and social situation: Patient has fair judgment about need for treatment Impulse control: Fair Assessment: Major depressive disorder, recurrent, severe, without psychotic features. Alcohol use disorder, severe. Alcohol withdrawal. Plan: Continue inpatient level of care due to further need for stabilization Precautions: Continue 15 minutes check for safety. Consider medical consultation if any acute medical issues arise. Provide the patient individual, group therapy, substance use disorder counseling to give better insight and learn coping skills. Continue follow-up with the patient daily to monitor progress of depression and alcohol withdrawal. Medications: Paxil 60 mg daily for depression and anxiety. Trazodone 150 mg at bedtime as needed for insomnia. Consider Vivitrol injection for alcohol craving. Non-psychiatric medications including Flexeril as needed for muscle relaxation, Motrin as needed for pain. Discharge patient to OUTPATIENT services upon a stabilization
[2020-05-23] MEDS: QUEtiapine 50 MG TAB PO SCH (21:07)
[2020-05-24] MEDS: LORazepam 1 MG TAB PO PRN ×2 (05:28→13:26)
[2020-05-24] MEDS: DULoxetine HCL 60 MG CAPSULE.DR PO SCH (08:22)
[2020-05-24] MEDS: ATORVASTATIN 20 MG TAB PO SCH (08:22)
[2020-05-24] MEDS: FOLIC ACID 1 MG TAB PO SCH (08:22)
[2020-05-24] MEDS: ASPIRIN 81 MG PO SCH (08:22)
[2020-05-24] MEDS: NICOTINE 14MG/24HR PATCH TRANSDERM SCH (08:23)
--- NOTE | 2020-05-24 10:34 | P.PN ---
Progress Note - Text Progress Note Date: 05/24/20 Interval History: Patient was seen laying down on her bed this morning and was directable and ag reeable to speak with grant writer in the office. Patient appeared to have a limping gait once again today as she was walking to the office. Patient continues to complain of hip pain and states that "emotionally I'm doing much better though" and states that her anxiety and mood have been gradually improving on the current medications. She continues to claim that she cannot care for herself and is homeless. She continues to be ambivalent about rehab. She continues to state that she was only feeling suicidal due to the pain however has not been taking muscle relaxant and Tylenol which has been helping. She claims that she is not having any alcohol withdrawal symptoms at this time. She claims that her mood has been "better" and was agreeable to continue on with Cymbalta as prescribed and Seroquel at nighttime. She states that she was able to sleep throughout the night with no overnight complaints. She claims that she has gone to some groups so far and has a fair appetite. At this time patient denies any suicidal or homical ideations, intent or plan. Patient denies any auditory, visual hallucinations and denies any paranoia or delusions. Patient denies any side effects from the medications and has been compliant with meds. Mental Status Exam: General Appearance: Patient appears to be older than stated age is, thin and alert, directable, and more cooperative today. Improving hygiene and grooming. Behavior: Patient is calmly seated without any agitated behavior. Preoccupied pain. Speech: Patient's speech is fluent and nonpressured. Mood/Affect: Mood is "better", affect is congruent and constricted. Suicidality/Homicidality: Patient denies having any suicidal or homicidal ideation intent or plan. Perceptions: Patient denies any visual hallucinations and denies any auditory hallucinations Though content/process: There is no evidence of any delusional thought content and thought process is linear and goal-directed. Focused on her pain and housing. Memory and concentration: AOX3, grossly intact for the purposes of this session Judgment and insight: Mildly improving. Assessment Major depressive disorder, recurrent, severe Alcohol use disorder, severe dependence Plan: -Patient continues to meet criteria for inpatient psychiatric admission for symptom stabilization and safety. Patient has signed adult voluntary form and medication consent and was placed in patient's chart. -Medications: Continue with Cymbalta 60 mg daily for mood/pain/anxiety. Continue with Seroquel 50 mg daily at bedtime for insomnia/mood stabilization. -When necessary Ativan and Geodon for agitation/aggression. -Hip x-ray on admission was negative for any acute changes. -CIWA discontinued. Vital signs reviewed. -NRT - nicotine patch -SW on board for discharge planning. Encouraged the patient to participate in milieu. Patient will either be discharged to [facility] versus rehab. Likely discharge tomorrow.
[2020-05-24] MEDS: IBUPROFEN 600 MG TAB PO PRN (13:26)
[2020-05-24] MEDS: CYCLOBENZAPRINE 5 MG TAB PO PRN (19:59)
[2020-05-24] MEDS: QUEtiapine 50 MG TAB PO SCH (19:59)
[2020-05-25] MEDS: IBUPROFEN 600 MG TAB PO PRN ×3 (02:27→16:23)
[2020-05-25] MEDS: LORazepam 1 MG TAB PO PRN ×3 (02:27→16:23)
[2020-05-25] MEDS: NICOTINE 14MG/24HR PATCH TRANSDERM SCH (08:57)
[2020-05-25] MEDS: DULoxetine HCL 60 MG CAPSULE.DR PO SCH (08:58)
[2020-05-25] MEDS: ATORVASTATIN 20 MG TAB PO SCH (08:58)
[2020-05-25] MEDS: ASPIRIN 81 MG PO SCH (08:58)
[2020-05-25] MEDS: FOLIC ACID 1 MG TAB PO SCH (08:58)
[2020-05-25] MEDS: CYCLOBENZAPRINE 5 MG TAB PO PRN (11:35)
--- NOTE | 2020-05-25 11:59 | P.DS ---
Providers Date of admission: 05/20/20 01:58 Expected date of discharge: 05/25/20 Attending physician: Kash Alba MD Consults: 05/20/20 03:29 Consult Physician Routine Consulting Provider: Rodrigo Sutton Consult Reason/Comments: For H & P for Medical Follow Up Do you want consulting provider notified?: Yes, Notify in am 05/20/20 10:32 Consult Physician Routine Consulting Provider: Rodrigo Sutton Consult Reason/Comments: h&P Do you want consulting provider notified?: Already Contacted 05/23/20 12:59 Consult Physician Routine Consulting Provider: Julian Parker Consult Reason/Comments: Right hip pain Do you want consulting provider notified?: Yes Primary care physician: Kandi Dailey - Discharge Diagnosis(es) (1) Major depressive disorder, recurrent severe without psychotic features Current Visit: Yes Status: Acute Priority: High (2) Alcohol use disorder, severe, dependence Current Visit: Yes Status: Acute Priority: Medium Hospital Course: Admission HPI: Admission nose completed by Dr. Manriquez "the patient is a 64-year-old female seen receiving Social Security disability since November 2019 and currently living in a motel and is the mother of 3 grown up children. Patient presented yesterday to the hospital with depression and suicidal ideations with a plan to slash her wrists. At the time of her arrival to the emergency room her blood alcohol was 139. I reviewed the medical record and interviewed the patient. The patient reported a history of depression since her early 30s however her depression has been getting worse for the last couple of months. She reports poor appetite, hopelessness and helplessness and feeling overwhelmed with poor concentration and no energy and sleep impairment. The patient stated that she is still feeling suicidal but she does not have any plan. Patient endorses high anxiety and she stated that her anxiety has been getting worse since she has not been able to stop drinking. Patient stated that she was very upset over her living situation and very frustrated as she is not able to find stable housing. She is concerned that she does not have any money to stay in a motel. Patient is also frustrated as she is not able to stop drinking despite her admission to rehabilitation for more than 15 times. Patient stated that she is estranged from her children, as "my daughter did not talk to me for the last couple of months because of my drinking". Patient was recently at [facility] for alcohol rehabilitation for 28 days and was discharged 1 month ago. However she, relapsed on alcohol as soon as she left the program" Hospital course: Upon admission to the unit patient was initially depressed anxious and suicidal. Patient was however directable and agreeable to commence treatment. Patient got along well with other patients on the unit and followed unit protocol. Patient was compliant with the medications and denied any side effects throughout hospit al course. Patient was started on Cymbalta and titrated up to a dose of 60 mg daily for mood/anxiety/pain and also was started on Seroquel 50 mg daily at bedtime for mood stabilization/insomnia. Patient was placed on CIWA protocol with Ativan when necessary for alcohol withdrawal. Patient spoke of her stressors and engaged in therapy both group and individual. Patient was also seen by medical team for history and physical exam. Patient had one x-ray completed on 05/19/2020 on her right hip and AP pelvis which was negative and also had a second hip x-ray 2 views on her right side which showed no fracture or dislocation which was completed on 05/23/2020. Throughout the course of the hospitalization patient gradually improved with regards to [mood, anxiety], pain, sleep and became future oriented with improved insight and judgment. On the day of discharge patient denied any suicidal or homicidal ideations intent or plan denied any auditory or visual hallucinations. Patient endorsed wanting to live for her sobriety and her health. The patient denied any access to guns or weapons. Patient denied any paranoia and did not endorse any delusions. Patient does have a significant history of substance abuse and was counseled on abstaining from all substances including alcohol and marijuana. [Patient was offered inpatient substance abuse rehab and patient accepted and will be transferred directly to [facility] for rehabilitation.] Patient was also counseled on the medications and need for regular compliance and was encouraged to follow- up with their outpatient appointment for mental health and also for primary care. Mental status exam: General Appearance: [Patient appears to be thin, older than stated age is alert, pleasant, and cooperative. Patient is in no acute distress and has fair hygiene and grooming] Behavior: [Patient is calmly seated without any agitated behavior.] Attempts to cooperate. Speech: Patient's speech is fluent and nonpressured. Mood/Affect: Patient reports their mood is "better", affect is congruent and euthymic. Suicidality/Homicidality: Patient denies having any suicidal or homicidal ideation intent or plan. Perceptions: Patient denies any auditory or visual hallucinations. Though content/process: There is no evidence of any delusional thought content and thought process is linear and goal-directed. [more future oriented] and focused on her sobriety. Memory and concentration: AOX3, grossly intact for the purposes of this session. Can spell "WORLD" backwards correctly. Judgment and insight: Improved [with guarded prognosis] Impression: Depressive disorder, recurrent, severe with psychotic features Alcohol dependence, severe Plan: -Continue with discharge today as patient has improved and stabilized psychiatrically and is not currently an imminent threat to herself and/or others. -Continue medications: Continue with Cymbalta 60 mg daily for mood/anxiety/pain and Seroquel 50 mg nightly for mood stabilization/insomnia. -Patient was counseled on the need for medication compliance and appropriate follow-up at mental health and also primary care for medical issues. Patient verbalized understanding and agreed. -Social work to arrange for patient to be discharged tomorrow early in the morning directly to [facility] where she will take a bus to rehab in the morning. -Social work also to arrange for patients follow up appointments for psychiatric care along with follow up with primary care provider. Patient was advised to see her primary care physician for further pain management. -Patient counseled on abstaining from recreational drugs and marijuana and alcohol. Was informed/educated on the adverse effects on their physical and mental health. [Patient verbally agreed and understood]. Patient will be going to [facility] for substance use rehab program. -Patient was instructed to return to the hospital or seek immediate medical care if their psychiatric or medical symptoms do worsen or reoccur. Allergies Allergy/AdvReac Type Severity Reaction Status Date / Time No Known Allergies Allergy Verified 05/19/20 19:29 Laboratory Results WBC 9.4 k/uL (3.8-10.6) 05/19/20 20:54 RBC 4.98 m/uL (3.80-5.40) 05/19/20 20:54 Hgb 15.6 gm/dL (11.4-16.0) 05/19/20 20:54 Hct 49.6 % (34.0-46.0) H 05/19/20 20:54 MCV 99.8 fL (80.0-100.0) 05/19/20 20:54 MCH 31.4 pg (25.0-35.0) 05/19/20 20:54 MCHC 31.5 g/dL (31.0-37.0) 05/19/20 20:54 RDW 15.1 % (11.5-15.5) 05/19/20 20:54 Plt Count 189 k/uL (150-450) 05/19/20 20:54 Neutrophils % 47 % 05/19/20 20:54 Lymphocytes % 41 % 05/19/20 20:54 Monocytes % 7 % 05/19/20 20:54 Eosinophils % 2 % 05/19/20 20:54 Basophils % 1 % 05/19/20 20:54 Neutrophils # 4.4 k/uL (1.3-7.7) 05/19/20 20:54 Lymphocytes # 3.9 k/uL (1.0-4.8) 05/19/20 20:54 Monocytes # 0.6 k/uL (0-1.0) 05/19/20 20:54 Eosinophils # 0.2 k/uL (0-0.7) 05/19/20 20:54 Basophils # 0.1 k/uL (0-0.2) 05/19/20 20:54 Macrocytosis Slight 05/19/20 20:54 PT 9.8 sec (9.0-12.0) 05/19/20 20:54 INR 0.9 (<1.2) 05/19/20 20:54 APTT 24.0 sec (22.0-30.0) 05/19/20 20:54 Sodium 135 mmol/L (137-145) L 05/19/20 20:54 Potassium 4.0 mmol/L (3.5-5.1) 05/19/20 20:54 Chloride 104 mmol/L (98-107) 05/19/20 20:54 Carbon Dioxide 23 mmol/L (22-30) 05/19/20 20:54 Anion Gap 8 mmol/L 05/19/20 20:54 BUN 3 mg/dL (7-17) L 05/19/20 20:54 Creatinine 0.56 mg/dL (0.52-1.04) 05/19/20 20:54 Est GFR (CKD-EPI)AfAm >90 (>60 ml/min/1.73 sqM) 05/19/20 20:54 Est GFR (CKD-EPI)NonAf >90 (>60 ml/min/1.73 sqM) 05/19/20 20:54 Glucose 107 mg/dL (74-99) H 05/19/20 20:[address] Glu mg/dL 97 05/20/20 07:37 Hemoglobin A1c 5.0 % (4.0-6.0) 05/20/20 07:37 Calcium 8.6 mg/dL (8.4-10.2) 05/19/20 20:54 Magnesium 2.0 mg/dL (1.6-2.3) 05/19/20 20:54 Total Bilirubin 0.7 mg/dL (0.2-1.3) 05/20/20 07:37 Conjugated Bilirubin 0.0 mg/dL (0.0-0.3) 05/20/20 07:37 Unconjugated Bilirubin 0.6 mg/dL (0.0-1.1) 05/20/20 07:37 Delta Bilirubin 0.1 mg/dL (0.0-0.2) 05/20/20 07:37 AST 62 U/L (14-36) H 05/20/20 07:37 ALT 15 U/L (4-34) 05/20/20 07:37 Alkaline Phosphatase 107 U/L (38-126) 05/20/20 07:37 Total Protein 5.9 g/dL (6.3-8.2) L 05/20/20 07:37 Albumin 3.4 g/dL (3.5-5.0) L 05/20/20 07:37 Triglycerides 143 mg/dL (<150) 05/20/20 07:37 Cholesterol 166 mg/dL (<200) 05/20/20 07:37 LDL Cholesterol, Calc 61 mg/dL (0-99) 05/20/20 07:37 HDL Cholesterol 76 mg/dL (40-60) H 05/20/20 07:37 Amylase 89 U/L (30-110) 05/19/20 20:54 Lipase 65 U/L (23-300) 05/19/20 20:54 TSH 2.430 mIU/L (0.465-4.680) 05/20/20 07:37 Urine Color Light Yellow 05/19/20 20:54 Urine Appearance Clear (Clear) 05/19/20 20:54 Urine pH 5.0 (5.0-8.0) 05/19/20 20:54 Ur Specific [place] 1.003 (1.001-1.035) 05/19/20 20:54 Urine Protein Negative (Negative) 05/19/20 20:54 Urine Glucose (UA) Negative (Negative) 05/19/20 20:54 Urine Ketones Negative (Negative) 05/19/20 20:54 Urine Blood Trace (Negative) H 05/19/20 20:54 Urine Nitrite Negative (Negative) 05/19/20 20:54 Urine Bilirubin Negative (Negative) 05/19/20 20:54 Urine Urobilinogen <2.0 mg/dL (<2.0) 05/19/20 20:54 Ur Leukocyte Esterase Negative (Negative) 05/19/20 20:54 Urine RBC 1 /hpf (0-5) 05/19/20 20:54 Urine WBC 1 /hpf (0-5) 05/19/20 20:54 Ur Squamous Epith Cells 1 /hpf (0-4) 05/19/20 20:54 Urine Mucus Rare /hpf (None) H 05/19/20 20:54 Stool Occult Blood Negative (Negative) 05/19/20 22:21 Urine Opiates Screen Not Detected (NotDetected) 05/19/20 20:54 Ur Oxycodone Screen Not Detected (NotDetected) 05/19/20 20:54 Urine Methadone Screen Not Detected (NotDetected) 05/19/20 20:54 Ur Propoxyphene Screen Not Detected (NotDetected) 05/19/20 20:54 Ur Barbiturates Screen Detected (NotDetected) H 05/19/20 20:54 U Tricyclic Antidepress Not Detected (NotDetected) 05/19/20 20:54 Ur Phencyclidine Scrn Not Detected (NotDetected) 05/19/20 20:54 Ur Amphetamines Screen Not Detected (NotDetected) 05/19/20 20:54 U Methamphetamines Scrn Not Detected (NotDetected) 05/19/20 20:54 U Benzodiazepines Scrn Not Detected (NotDetected) 05/19/20 20:54 Urine Cocaine Screen Not Detected (NotDetected) 05/19/20 20:54 U Marijuana (THC) Screen Not Detected (NotDetected) 05/19/20 20:54 Serum Alcohol 139 mg/dL 05/19/20 20:54 Vital Signs Temp 98.6 F 05/25/20 04:57 Pulse 86 05/25/20 04:57 Resp 16 05/25/20 04:57 BP 112/67 05/25/20 04:57 Pulse Ox 97 05/25/20 04:57 Patient Condition at Discharge: Stable Plan - Discharge Summary New Discharge Prescriptions: New DULoxetine HCL [Cymbalta] 60 mg PO DAILY 30 Days capsule. Cyclobenzaprine [Flexeril] 5 mg PO BID PRN 30 Days #60 tab PRN Reason: Muscle Spasm Folic Acid 1 mg PO DAILY 30 Days tab Nicotine 14Mg/24Hr Patch [Habitrol] 1 patch TRANSDERM DAILY 14 Days patch Ibuprofen [Motrin] 600 mg PO Q8H PRN 30 Days tab PRN Reason: Moderate To Severe Pain QUEtiapine [SEROquel] 50 mg PO HS 30 Days tab Acetaminophen Tab [Tylenol] 650 mg PO Q4HR PRN 30 Days tab PRN Reason: Pain/Discomfort Continue Aspirin EC [Ecotrin Low Dose] 81 mg PO DAILY 30 Days tab Atorvastatin [Lipitor] 20 mg PO DAILY 30 Days tab Multivitamins, Thera [Multivitamin (formulary)] 1 tab PO DAILY 30 Days tab Discontinued traZODone HCL 50 mg PO HS PRN PRN Reason: Insomnia hydrOXYzine PAMOATE 50 mg PO TID Escitalopram [Lexapro] 20 mg PO DAILY Ergocalciferol [Vitamin D2] 50,000 unit PO Q14D Discharge Medication List Acetaminophen Tab [Tylenol] 650 mg PO Q4HR PRN 30 Days tab 05/25/20 [Rx] Aspirin EC [Ecotrin Low Dose] 81 mg PO DAILY 30 Days tab 05/25/20 [Rx] Atorvastatin [Lipitor] 20 mg PO DAILY 30 Days tab 05/25/20 [Rx] Cyclobenzaprine [Flexeril] 5 mg PO BID PRN 30 Days #60 tab 05/25/20 [Rx] DULoxetine HCL [Cymbalta] 60 mg PO DAILY 30 Days cas. 05/25/20 [Rx] Folic Acid 1 mg PO DAILY 30 Days tab 05/25/20 [Rx] Ibuprofen [Motrin] 600 mg PO Q8H PRN 30 Days tab 05/25/20 [Rx] Multivitamins, Thera [Multivitamin (formulary)] 1 tab PO DAILY 30 Days tab 05/25/20 [Rx] Nicotine 14Mg/24Hr Patch [Habitrol] 1 patch TRANSDERM DAILY 14 Days patch 05/25/20 [Rx] QUEtiapine [SEROquel] 50 mg PO HS 30 Days tab 05/25/20 [Rx] Follow up Appointment(s)/Referral(s): Kandi Dailey MD [Primary Care Provider] - 1-2 days Activity/Diet/Wound Care/Special Instructions: Activity and diet as tolerated. Avoid the use of street drugs and alcohol. Take all medications as prescribed. When you are in need of refills on your medications please contact your medical provider and/or outpatient psychiatrist to have this done. Please go to scheduled outpatient appointment for aftercare treatment. If symptoms return or become worse, call the crisis line at and/or go to the nearest emergency room for evaluation Discharge Disposition: HOME SELF-CARE
[2020-05-25] MEDS: QUEtiapine 50 MG TAB PO SCH (20:19)
[2020-05-26 06:44] VITALS: BP 125/76; PULSE 78; RESP 18; TEMP 98.7
[2020-05-26] MEDS: DULoxetine HCL 60 MG CAPSULE.DR PO SCH (07:58)
[2020-05-26] MEDS: ASPIRIN 81 MG PO SCH (07:58)
[2020-05-26] MEDS: FOLIC ACID 1 MG TAB PO SCH (07:59)
[2020-05-26] MEDS: ATORVASTATIN 20 MG TAB PO SCH (07:59)
[2020-05-26] MEDS: ACETAMINOPHEN TAB 325 MG TAB PO PRN (08:00)
[2020-05-26] MEDS: NICOTINE 14MG/24HR PATCH TRANSDERM SCH (08:02)
== END 2020-05-26 08:20 | disposition home or self-care (01) | DRG 885 ==
LOC: EC 19:16 → 3MHU 05-20 01:58
PROVIDERS: ADMIT Psychiatry & Neurology Psychiatry; ATTEND Psychiatry & Neurology Psychiatry
DX: F33.2 Major depressive disorder, recurrent severe without psychotic features (principal); R45.851 Suicidal ideations; F10.230 Alcohol dependence with withdrawal, uncomplicated; K70.10 Alcoholic hepatitis without ascites; J44.9 Chronic obstructive pulmonary disease, unspecified; F43.10 Post-traumatic stress disorder, unspecified; E78.00 Pure hypercholesterolemia, unspecified; M15.9 Polyosteoarthritis, unspecified; R73.03 Prediabetes; G47.00 Insomnia, unspecified; F17.200 Nicotine dependence, unspecified, uncomplicated; G89.29 Other chronic pain; R63.0 Anorexia; Y90.6 Blood alcohol level of 120-199 mg/100 ml; Z79.82 Long term (current) use of aspirin; Z79.899 Other long term (current) drug therapy; Z63.8 Other specified problems related to primary support group; Z91.19 Patient's noncompliance with other medical treatment and regimen
CPT/HCPCS: 36415; 73502; 80053; 80061; 80076; 80306; 80320; 81001; 82075; 82150; 82272; 83036; 83690; 83735; 84443; 85025; 85610; 85730; 96372; 99285